=== PATIENT | male | born 1950 | race Caucasian/White ===

== ENCOUNTER → 2018-04-10 | Outpatient (CLI) | payer MEDICARE ==
[2018-04-10 11:36] LABS: ABSOLUTE BASOPHILS # (AUTO) 0.1 10^3/uL (0.0-0.2); ABSOLUTE EOSINOPHILS # (AUTO) 0.3 10^3/uL (0.0-0.6); ABSOLUTE LYMPHOCYTES (AUTO) 1.4 10^3/uL (0.5-4.7); ABSOLUTE MONOCYTES (AUTO) 0.8 10^3/uL (0.1-1.4); ABSOLUTE NEUT (AUTO) 4.1 10^3/uL (1.7-8.2); BASOPHILS % (AUTO) 1.1 % (0-2); EOSINOPHILS % (AUTO) 5.1 % (0-6); HEMATOCRIT 41.8 % (37.9-51.0); HEMOGLOBIN 14.6 g/dL (13.5-17.0); LYMPHOCYTES % (AUTO) 21.6 % (13-45); MEAN CORPUSCULAR HEMOGLOBIN 31.9 pg (27.0-33.4); MEAN CORPUSCULAR HGB CONC 34.8 g/dL (32.0-36.0); MEAN CORPUSCULAR VOLUME 92 fl (80-97); MONOCYTES % (AUTO) 11.5 % (3-13); PLATELET COUNT 161 10^3/uL (150-450); RED BLOOD COUNT 4.56 10^6/uL (4.35-5.55); RED CELL DISTRIBUTION WIDTH 13.3 % (11.5-14.0); SEGMENTED NEUTROPHILS % (AUTO) 60.7 % (42-78); TOTAL CELLS COUNTED % (AUTO) 100 %; WHITE BLOOD COUNT 6.7 10^3/uL (4.0-10.5)
[2018-04-10 11:38] LABS: APPEARANCE,URINE SLIGHTLY-CLOUDY; BILIRUBIN,URINE NEGATIVE (NEGATIVE); GLUCOSE, URINE NEGATIVE (NEGATIVE); KETONES,URINE NEGATIVE (NEGATIVE); LEUKOCYTE ESTERASE,URINE NEGATIVE (NEGATIVE); NITRITE,URINE NEGATIVE (NEGATIVE); PROTEIN,URINE NEGATIVE (NEGATIVE); URINE SPECIFIC GRAVITY 1.026; UROBILINOGEN,URINE NEGATIVE mg/dL (<2.0)
[2018-04-10 11:39] LABS: COLOR,URINE YELLOW
[2018-04-10 11:45] LABS: ANION GAP 14 (5-19); BLOOD UREA NITROGEN 30 mg/dL (7-20); CALCIUM 9.7 mg/dL (8.4-10.2); CARBON DIOXIDE 26 mmol/L (22-30); CHLORIDE 101 mmol/L (98-107); GLUCOSE 99 mg/dL (75-110); POTASSIUM 4.9 mmol/L (3.6-5.0)
--- NOTE | 2018-04-10 12:44 | RADIOLOGY REPORT (SQ) ---
EXAM DESCRIPTION: CHEST PA/LATERAL COMPLETED DATE/TIME: 04/10/2018 10:50 am REASON FOR STUDY: PRE-OP COMPARISON: None. EXAM PARAMETERS: NUMBER OF VIEWS: two views TECHNIQUE: Digital Frontal and Lateral radiographic views of the chest acquired. RADIATION DOSE: NA LIMITATIONS: none FINDINGS: LUNGS AND PLEURA: Mild bronchiectasis in the perihilar regions bilaterally. No focal cons olidation. Chronic elevation right diaphragm. MEDIASTINUM AND HILAR STRUCTURES: No masses or contour abnormalities. HEART AND VASCULAR STRUCTURES: Heart normal size. No evidence for failure. BONES: No acute findings. HARDWARE: None in the chest. OTHER: No other significant finding. IMPRESSION: No acute findings in the chest. TECHNICAL DOCUMENTATION: JOB ID: [id number] [employer]- All Rights Reserved Reading location - IP/workstation name: [email or web address]
== END ==
LOC: OD 10:18
PROVIDERS: ATTEND Orthopaedic Surgery
DX: Z01.810 Encounter for preprocedural cardiovascular examination (principal); Z01.811 Encounter for preprocedural respiratory examination; Z01.812 Encounter for preprocedural laboratory examination; Z01.818 Encounter for other preprocedural examination
CPT/HCPCS: 36415; 71046; 80048; 81001; 85025

== ENCOUNTER 2018-04-28 08:30 | Inpatient (IN) | payer MEDICARE ==
--- NOTE | 2018-04-25 16:11 | Physician Advisory Note ---
Physician Advisor ProgressNote .: Pursuant to the plan for [facility], I have reviewed the medical record for this patient. Physician Advisor Statement: Surgical necessity - VERY NICELY DOCUMENTED IN H&P INCLUDING X-RAY DETAILS. Status: Blue MCR Adv pt. Need to know if there is pre-authorization for Inpt or if determination is needed like typical MCR cases. Will update this note when this info is available. CK
[~2018-04-28 08:30] MED LIST: ACETAMINOPHEN 0 MG/0 ML RTUPB IV ONE; BUPIVACAINE HCL/DEX-WATER/PF 15 MG/2 ML AMPULE ONE; BUPIVACAINE INJ/PF LIPOSOME/PF 266 MG/20 ML SDV IJ PRN; CEFAZOLIN INJ 1 GM VIAL IV PRN; CEFAZOLIN INJ 1 GM VIAL ONE; DEXAMETHASONE SOD PHOSPHATE INJ 4 MG/1 ML VIAL ONE; FENTANYL CITRATE INJ/PF 100 MCG/2 ML AMPUL ONE; IBUPROFEN 800 MG in DEXTROSE 5%-WATER 250 ML IV PRN; IBUPROFEN 800 MG/NS 250 ML IV PRN; LACTATED RINGERS 1000 ML IV PRN; LANSOPRAZOLE 15 MG TAB.RAP.DR ONE; LANSOPRAZOLE 15 MG TAB.RAP.DR PO PRN; LIDOCAINE 0.5% INJ-PF (5 MG/ML) 50 ML SDV SUBCUT PRN; MIDAZOLAM 2 MG/2 ML INJ ONE; ONDANSETRON HCL INJ/PF 4 MG/2 ML SDV ONE; OXYCODONE HCL SR 10 MG TABLET PO ONE; OXYCODONE HCL SR 10 MG TABLET PO PRN; PROPOFOL INJ 200 MG/20 ML VIAL IV ONE; VANCOMYCIN HCL 1,000 MG in DEXTROSE 5%-WATER 250 ML IV PRN
[2018-04-28] MEDS ORDERED: THROMBIN (BOVINE) 5000 UNIT EPITAXIS KIT ONE (08:58)
[2018-04-28] MEDS ORDERED: THROMBIN (BOVINE) TOPICAL 20000 UNIT VIAL ONE (08:58)
[2018-04-28] MEDS ORDERED: BUPIVACAINE INJ/PF LIPOSOME/PF 266 MG/20 ML SDV ONE (08:59)
[2018-05-12] MEDS ORDERED: OXYCODONE HCL SR 10 MG TABLET PO PRN (05:00)
[2018-05-12] MEDS ORDERED: LIDOCAINE 0.5% INJ-PF (5 MG/ML) 50 ML SDV SUBCUT PRN (05:00)
[2018-05-12] MEDS ORDERED: BUPIVACAINE INJ/PF LIPOSOME/PF 266 MG/20 ML SDV IJ PRN (05:00)
[2018-05-12] MEDS ORDERED: IBUPROFEN 800 MG in DEXTROSE 5%-WATER 250 ML IV PRN (05:00)
[2018-05-12] MEDS ORDERED: LACTATED RINGERS 1000 ML IV PRN (05:00)
[2018-05-12] MEDS ORDERED: CEFAZOLIN INJ 1 GM VIAL IV PRN (05:00)
[2018-05-12] MEDS ORDERED: LANSOPRAZOLE 15 MG TAB.RAP.DR PO PRN (05:00)
[2018-05-12] MEDS ORDERED: VANCOMYCIN HCL 1,000 MG in DEXTROSE 5%-WATER 250 ML IV PRN (05:00)
[2018-05-12] MEDS ORDERED: LANSOPRAZOLE 15 MG TAB.RAP.DR ONE (05:29)
[2018-05-12] MEDS ORDERED: CEFAZOLIN INJ 1 GM VIAL ONE (05:30)
[2018-05-12] MEDS ORDERED: OXYCODONE HCL SR 10 MG TABLET PO ONE (05:30)
[2018-05-12] MEDS ORDERED: THROMBIN (BOVINE) TOPICAL 20000 UNIT VIAL ONE (07:01)
[2018-05-12] MEDS ORDERED: BUPIVACAINE INJ/PF LIPOSOME/PF 266 MG/20 ML SDV ONE (07:01)
[2018-05-12] MEDS ORDERED: THROMBIN (BOVINE) 5000 UNIT EPITAXIS KIT ONE (07:01)
[2018-05-12] MEDS ORDERED: FENTANYL CITRATE INJ/PF 100 MCG/2 ML AMPUL ONE ×2 (07:02→07:36)
[2018-05-12] MEDS ORDERED: MIDAZOLAM 2 MG/2 ML INJ ONE ×2 (07:03→07:36)
[2018-05-12] MEDS ORDERED: LIDOCAINE 2% INJ-PF (20 MG/ML) 10 ML AMPUL ONE ×2 (07:04→07:37)
[2018-05-12] MEDS ORDERED: PROPOFOL INJ 200 MG/20 ML VIAL IV ONE ×2 (07:04→07:36)
[2018-05-12] MEDS ORDERED: BUPIVACAINE HCL/DEX-WATER/PF 15 MG/2 ML AMPULE ONE ×2 (07:05→07:38)
[2018-05-12] MEDS ORDERED: TRANEXAMIC ACID INJ/PF 1,000 MG/10 ML SDV IV ONE ×3 (07:21→10:00)
[2018-05-12] MEDS ORDERED: ACETAMINOPHEN 1,000 MG/100 ML RTUPB IV ONE (07:21)
[2018-05-12] MEDS ORDERED: DIPHENHYDRAMINE HCL 50 MG/ML VIAL IV PRN ×2 (08:01→08:33)
[2018-05-12] MEDS ORDERED: PROMETHAZINE HCL INJ 25 MG/1 ML VIAL IV PRN ×2 (08:01)
[2018-05-12] MEDS ORDERED: MEPERIDINE HCL/PF INJ 25 MG/1 ML DISP.SYRIN IV PRN (08:01)
[2018-05-12] MEDS ORDERED: OXYCODONE-ACETAMINOPHEN 5-325 MG TABLET PO PRN ×2 (08:01)
[2018-05-12] MEDS ORDERED: FENTANYL CITRATE INJ/PF 100 MCG/2 ML AMPUL IV PRN ×3 (08:01)
[2018-05-12] MEDS ORDERED: MORPHINE SULFATE 10 MG/ML INJ IM PRN (08:33)
[2018-05-12] MEDS ORDERED: MAG HYDROX/AL HYDROX/SIMETH SUSP 30 ML UDCUP PO PRN (08:33)
[2018-05-12] MEDS ORDERED: ZOLPIDEM TARTRATE 5 MG TABLET PO PRN (08:33)
[2018-05-12] MEDS ORDERED: ONDANSETRON 4 MG TAB.RAPDIS PO PRN (08:33)
[2018-05-12] MEDS ORDERED: RINGERS SOLUTION,LACTATED 1,000 ML IV PRN (08:33)
[2018-05-12] MEDS ORDERED: MORPHINE SULFATE 10 MG/ML INJ IV PRN ×3 (08:33)
[2018-05-12] MEDS ORDERED: ONDANSETRON HCL INJ/PF 4 MG/2 ML SDV IV PRN (08:33)
--- NOTE | 2018-05-12 08:33 | Operative Report ---
Operative Report DATE OF SURGERY: 05/12/18 PREOPERATIVE DIAGNOSIS: Left knee arthritis OPERATION: Left knee arthroplasty SURGEON: AUBREY ALCALA ANESTHESIA: Spinal TISSUE REMOVED OR ALTERED: Bone to pathology ESTIMATED BLOOD LOSS: 100 PROCEDURE: Implants used: Femur: Kimberly triathlon size 5 CR femur Tibia: 4 tibia Tibial liner: 9 mm CS insert Patella: 35 mm oval patella Procedure with the patient supine on the operating table the left the limb is prepped and draped in a sterile fashion. The limb was elevated for exsanguination and the tourniquet inflated to 280 torr. A standard midline median parapatellar approach the knee is taken. Access is gained to the femoral canal through the intercondylar notch. Intramedullary alignment instrumentation used to resect 10 mm of distal femur in 5 of valgus. Sizing guide indicated a size 5 femur. Appropriate cutting jig is then used to fashion anterior posterior and chamfer cuts. A trial reduction femurs performed and this is judged to be adequate. Attention was next turned to the tibia. Using an extra medullary alignment system 9 millimeters was resected off the lateral tibial plateau. This is sized to a size 4 tibia. A trial reduction was now performed with a 5 femur and a for tibia using a 9 millimeters spacer. It is full extension and central patellofemoral tracking. The articular surface the patella was next resected using an oscillating saw. All trial implants were removed. Polymethylmethacrylate is mixed and used to cement the above implants in place. On adequate curing the cement excess cement was removed the tourniquet was deflated hemostasis obtained the wound is then closed in layers using interrupted Vicryl followed by shayna. A sterile compressive dressing was applied and the patient returned to recovery room in satisfactory condition.
--- NOTE | 2018-05-12 09:24 | RADIOLOGY REPORT (SQ) ---
EXAM DESCRIPTION: KNEE LEFT 2 VIEWS COMPLETED DATE/TIME: 05/12/2018 9:16 am REASON FOR STUDY: Post OP -Long Cassette in PACU M17.12 UNILATERAL PRIMARY OSTEOARTHRITIS, LEFT KNE E COMPARISON: None. NUMBER OF VIEWS: Two views TECHNIQUE: Digital radiographic images of the left knee post-procedure. LIMITATIONS: None. FINDINGS: BONES: No worrisome or unexpected findings post-procedure. DEVICE: Left total knee replacement with patellar resurfacing. SOFT TISSUES: No worrisome findings. Expected postoperative soft tissue changes. IMPRESSION: SATISFACTORY POSTOPERATIVE LEFT KNEE. TECHNICAL DOCUMENTATION: JOB ID: [id number] [employer]- All Rights Reserved Reading location - IP/workstation name: [email or web address]
[2018-05-12] MEDS ORDERED: CHOLECALCIFEROL 2000 UNIT PO SCH (10:00)
[2018-05-12] MEDS ORDERED: (PENDING PHARMACY ID) (Lisinopril/Hydrochlorothiazide [Lisinopril-Hctz 20-12.5 Mg Tab] 1 T PO SCH (10:00)
[2018-05-12] MEDS: HYDROCHLOROTHIAZIDE 12.5 MG TABLET PO SCH (11:38)
[2018-05-12] MEDS: BENAZEPRIL HCL 20 MG TABLET PO SCH (11:38)
[2018-05-12] MEDS: OXYCODONE HCL SR 10 MG TABLET PO SCH ×4 (11:39→21:16)
[2018-05-12] MEDS: IBUPROFEN 800 MG in NORMAL SALINE 250 ML IV SCH ×2 (14:52→21:25)
[2018-05-12] MEDS: PREGABALIN 75 MG CAPSULE PO SCH (15:20)
[2018-05-12] MEDS: ATORVASTATIN CALCIUM 10 MG TABLET PO SCH (15:20)
[2018-05-12] MEDS: CYANOCOBALAMIN (VITAMIN B-12) 1,000 MCG TABLET PO SCH (15:20)
[2018-05-12] MEDS: SENNOSIDES/DOCUSATE 8.6-50 MG 1 EACH TABLET PO SCH (15:20)
[2018-05-12] MEDS: BACLOFEN 10 MG TABLET PO SCH (15:21)
[2018-05-12] MEDS: CHOLECALCIFEROL (D3) 1,000 UNIT TABLET PO SCH (15:22)
[2018-05-12] MEDS: PRENATAL VITAMIN W DHA CAPSULE PO SCH (15:37)
[2018-05-12] MEDS ORDERED: VANCOMYCIN HCL 1,000 MG in DEXTROSE 5%-WATER 250 ML IV ONE (20:33)
[2018-05-13] MEDS: ACETAMINOPHEN 325 MG TABLET PO PRN ×2 (00:13→23:09)
[2018-05-13] MEDS: IBUPROFEN 800 MG in NORMAL SALINE 250 ML IV SCH ×3 (05:43→22:24)
[2018-05-13] MEDS: LANSOPRAZOLE 30 MG TAB.RAP.DR PO SCH (05:43)
[2018-05-13 06:22] LABS: HEMATOCRIT 37.7 % (37.9-51.0); MEAN CORPUSCULAR HEMOGLOBIN 31.8 pg (27.0-33.4); MEAN CORPUSCULAR HGB CONC 34.5 g/dL (32.0-36.0); MEAN CORPUSCULAR VOLUME 92 fl (80-97); PLATELET COUNT 145 10^3/uL (150-450); RED BLOOD COUNT 4.09 10^6/uL (4.35-5.55); RED CELL DISTRIBUTION WIDTH 13.3 % (11.5-14.0); WHITE BLOOD COUNT 11.9 10^3/uL (4.0-10.5)
[2018-05-13 06:43] LABS: ANION GAP 9 (5-19); BLOOD UREA NITROGEN 17 mg/dL (7-20); CALCIUM 9.2 mg/dL (8.4-10.2); CARBON DIOXIDE 25 mmol/L (22-30); CHLORIDE 103 mmol/L (98-107); GLUCOSE 138 mg/dL (75-110); POTASSIUM 4.3 mmol/L (3.6-5.0); SODIUM 137.3 mmol/L (137-145)
--- NOTE | 2018-05-13 06:43 | PDOC PROGRESS REPORT ---
Subjective Progress Note for:: 05/13/18 Reason For Visit: M17.12 UNILATERAL PRIMARY OSTEOARTHRITIS, LEFT KNE 68-year-old white male postop day 1 status post left knee arthroplasty. Patient with a temperature max of 38.1 last night and and ambulation of 5 feet yesterday with physical therapy Physical Exam Vital Signs: Temp Pulse Resp BP Pulse Ox 36.9 C 96 16 110/57 L 96 05/13/18 03:36 05/13/18 00:08 05/13/18 00:08 05/13/18 00:08 05/13/18 00:08 Intake & Output 05/11/18 05/12/18 05/13/18 06:59 06:59 06:59 Intake Total 0 4650 Output Total 3675 Balance 0 975 Weight 111.4 kg General appearance: PRESENT: no acute distress, mild distress Head exam: PRESENT: normocephalic Respiratory exam: PRESENT: unlabored Cardiovascular exam: PRESENT: RRR Vascular exam: PRESENT: normal capillary refill GI/Abdominal exam: PRESENT: soft Rectal exam: PRESENT: deferred Extremities exam: PRESENT: other - Left lower extremity dressing clean dry and intact. Distal neurovascular examination is intact. Neurological exam: PRESENT: alert, awake, oriented to person, oriented to place , oriented to time, oriented to situation. ABSENT: motor sensory deficit Psychiatric exam: PRESENT: appropriate affect, normal mood. ABSENT: homicidal ideation, suicidal ideation Skin exam: PRESENT: dry, intact, warm. ABSENT: cyanosis, rash Results Laboratory Results: 05/13/18 06:10 05/12/18 05/13/18 06:01 06:10 WBC 11.9 H RBC 4.09 L Hgb 13.0 L Hct 37.7 L MCV 92 MCH 31.8 MCHC 34.5 RDW 13.3 Plt Count 145 L Potassium 4.2 Impressions: Knee X-Ray 05/12/18 08:35 IMPRESSION: SATISFACTORY POSTOPERATIVE LEFT KNEE. Status: Imported from PACS Assessment & Plan - Diagnosis (1) Status post left knee replacement Is this a current diagnosis for this admission?: Yes Plan: Patient to be mobilized with physical therapy and weightbearing as tolerated basis. This point the patient does not have the functional capacity for consideration of discharge home. We will continue on with physical therapy today and observe for further febrile episodes. Anticipate discharge home tomorrow with home health services and DME. - Time Time Spent with patient: 15-24 minutes Anticipated discharge: Home with Homehealth Within: within 24 hours
[2018-05-13] MEDS: OXYCODONE HCL IR 5 MG TABLET PO PRN ×2 (08:13→23:09)
[2018-05-13] MEDS: OXYCODONE HCL SR 10 MG TABLET PO SCH ×2 (11:08→22:23)
[2018-05-13] MEDS: CYANOCOBALAMIN (VITAMIN B-12) 1,000 MCG TABLET PO SCH (11:09)
[2018-05-13] MEDS: ASPIRIN 81 MG TABLET, ENT COATED PO SCH (11:09)
[2018-05-13] MEDS: SENNOSIDES/DOCUSATE 8.6-50 MG 1 EACH TABLET PO SCH ×3 (11:09→17:34)
[2018-05-13] MEDS: ATORVASTATIN CALCIUM 10 MG TABLET PO SCH (11:09)
[2018-05-13] MEDS: PRENATAL VITAMIN W DHA CAPSULE PO SCH (11:09)
[2018-05-13] MEDS: PREGABALIN 75 MG CAPSULE PO SCH ×3 (11:09→17:35)
[2018-05-13] MEDS: BENAZEPRIL HCL 20 MG TABLET PO SCH (11:11)
[2018-05-13] MEDS: HYDROCHLOROTHIAZIDE 12.5 MG TABLET PO SCH (11:11)
[2018-05-13] MEDS: BACLOFEN 10 MG TABLET PO SCH ×3 (11:11→17:34)
[2018-05-13] MEDS: CHOLECALCIFEROL (D3) 1,000 UNIT TABLET PO SCH (11:13)
[2018-05-14 06:10] LABS: HEMATOCRIT 35.6 % (37.9-51.0); MEAN CORPUSCULAR HEMOGLOBIN 31.8 pg (27.0-33.4); MEAN CORPUSCULAR HGB CONC 33.8 g/dL (32.0-36.0); MEAN CORPUSCULAR VOLUME 94 fl (80-97); PLATELET COUNT 141 10^3/uL (150-450); RED BLOOD COUNT 3.78 10^6/uL (4.35-5.55); RED CELL DISTRIBUTION WIDTH 13.6 % (11.5-14.0); WHITE BLOOD COUNT 14.4 10^3/uL (4.0-10.5)
[2018-05-14] MEDS: IBUPROFEN 800 MG in NORMAL SALINE 250 ML IV SCH (06:24)
[2018-05-14] MEDS: LANSOPRAZOLE 30 MG TAB.RAP.DR PO SCH (06:25)
--- NOTE | 2018-05-14 07:13 | PDOC DISCHARGE SUMMARY ---
General - Admit/Disc Date/PCP Admission Date/Primary Care Provider: 05/12/18 05:38 AISHA THORNTON Discharge Date: 05/14/18 - Discharge Diagnosis (1) Status post left knee replacement Is this a current diagnosis for this admission?: Yes - Additional Information Resuscitation Status: Full Code Home Medications: Acetaminophen with Codeine [Tylenol #3 Tablet] 1 tab PO BID 05/12/18 Atorvastatin Calcium [Lipitor 10 mg Tablet] 10 mg PO QHS 05/12/18 Baclofen [Baclofen 10 mg Tablet] 10 mg PO BID 05/12/18 Cholecalciferol (Vitamin D3) [Vitamin D3] 2,000 unit PO DAILY 05/12/18 Cyanocobalamin (Vitamin B-12) [Vitamin B-12 1000 mcg Tablet] 1,000 mcg PO DAILY 05/12/18 Lisinopril/Hydrochlorothiazide [Lisinopril-Hctz 20-12.5 mg Tab] 1 tab PO DAILY 05/12/18 Piroxicam [Feldene] 20 mg PO DAILY 05/12/18 History of Present Illness History of Present Illness: BRIDGER GUILLORY is a 68 year old male Patient is a 68-year-old white male with progressive bilateral knee pain and functional disability secondary osteoarthritis. Patient is admitted for elective left knee arthroplasty. Hospital Course Hospital Course: Patient is admitted through the operating where he undergoes unconjugated left knee arthroplasty. Is returned to floor in satisfactory condition makes excellent progress with physical therapy and ablating 200 feet. He subsequently for discharge home. Physical Exam Vital Signs: Temp Pulse Resp BP Pulse Ox 36.7 C 87 18 112/57 L 93 05/13/18 23:11 05/13/18 23:11 05/13/18 23:11 05/13/18 23:11 05/13/18 23:11 Intake & Output 05/13/18 05/14/18 05/15/18 06:59 06:59 06:59 Intake Total 4822 1813 Output Total 9875 540 Balance 1147 1273 Weight 111.4 kg 110.2 kg General appearance: PRESENT: no acute distress Head exam: PRESENT: normocephalic Respiratory exam: PRESENT: unlabored Cardiovascular exam: PRESENT: RRR Pulses: PRESENT: +1 pedal pulses bilateral Vascular exam: PRESENT: normal capillary refill GI/Abdominal exam: PRESENT: soft Rectal exam: PRESENT: deferred Extremities exam: PRESENT: other - Left knee compressive dressings removed on postop day 2. The underlying postoperative dressing remains clean dry and intact. There is minimal pedal edema. Distal neurovascular examination is intact. Neurological exam: PRESENT: alert, awake, oriented to person, oriented to place , oriented to time, oriented to situation. ABSENT: motor sensory deficit Psychiatric exam: PRESENT: appropriate affect, normal mood. ABSENT: homicidal ideation, suicidal ideation Skin exam: PRESENT: dry, intact, warm. ABSENT: cyanosis, rash Results Laboratory Results: 05/14/18 04:50 05/13/18 06:10 05/14/18 04:50 WBC 14.4 H RBC 3.78 L Hgb 12.0 L Hct 35.6 L MCV 94 MCH 31.8 MCHC 33.8 RDW 13.6 Plt Count 141 L Impressions: Knee X-Ray 05/12/18 08:35 IMPRESSION: SATISFACTORY POSTOPERATIVE LEFT KNEE. Status: Imported from PACS Qualifiers - * PATIENT BEING DISCHARGED WITH ANY OF THE FOLLOWING DIAGNOSIS: No VTE patient discharged on overlapping Therapy?: Yes Plan Discharge Plan: Patient be discharged home with home health nursing, home health physical therapy, and DME. Follow-up Dr. Kennedy Hernandez [place] for surgery in 2 weeks for staple removal. Time Spent: Less than 30 Minutes
[2018-05-14 08:47] VITALS: BP 103/70
[2018-05-14] MEDS: OXYCODONE HCL IR 5 MG TABLET PO PRN (09:25)
[2018-05-14] MEDS: BACLOFEN 10 MG TABLET PO SCH (09:25)
[2018-05-14] MEDS: ATORVASTATIN CALCIUM 10 MG TABLET PO SCH (09:25)
[2018-05-14] MEDS: SENNOSIDES/DOCUSATE 8.6-50 MG 1 EACH TABLET PO SCH (09:25)
[2018-05-14] MEDS: ASPIRIN 81 MG TABLET, ENT COATED PO SCH (09:25)
[2018-05-14] MEDS: CHOLECALCIFEROL (D3) 1,000 UNIT TABLET PO SCH (09:25)
[2018-05-14] MEDS: CYANOCOBALAMIN (VITAMIN B-12) 1,000 MCG TABLET PO SCH (09:25)
[2018-05-14] MEDS: PRENATAL VITAMIN W DHA CAPSULE PO SCH (09:25)
[2018-05-14] MEDS: BENAZEPRIL HCL 20 MG TABLET PO SCH (09:26)
[2018-05-14] MEDS: PREGABALIN 75 MG CAPSULE PO SCH (09:26)
[2018-05-14] MEDS: HYDROCHLOROTHIAZIDE 12.5 MG TABLET PO SCH (09:26)
== END 2018-05-14 11:00 | disposition home health service (06) | DRG 470 ==
LOC: UNDOADMIN 08:30 → INOR 08:30 → 4S 05-12 10:33
PROVIDERS: ADMIT Orthopaedic Surgery; ATTEND Orthopaedic Surgery
PROC: 0SRD0J9 Replacement of Left Knee Joint with Synthetic Substitute, Cemented, Open Approach (ICD-10-PCS; principal; 2018-05-12 07:30)
DX: M17.12 Unilateral primary osteoarthritis, left knee (principal); I10 Essential (primary) hypertension; E78.00 Pure hypercholesterolemia, unspecified; M19.90 Unspecified osteoarthritis, unspecified site; Z87.891 Personal history of nicotine dependence; Z79.899 Other long term (current) drug therapy
CPT/HCPCS: 01402; 36415; 80048; 84132; 85027; 88305; 88311; 94799; C1713; C1776; C9290; G8978-GP; G8979-GP; G8987-GO; G8988-GO; J0131; J0690; J1100; J1741; J2250; J2405; J2704; J3010; J3370; J3490; J7050; J7060

== ENCOUNTER 2018-06-18 07:05 | Day surgery (SDC) | payer MEDICARE ==
[~2018-06-18 07:05] MED LIST changes: -ACETAMINOPHEN 0 MG/0 ML RTUPB IV ONE; -BUPIVACAINE HCL/DEX-WATER/PF 15 MG/2 ML AMPULE ONE; -BUPIVACAINE INJ/PF LIPOSOME/PF 266 MG/20 ML SDV IJ PRN; +CEFAZOLIN 2 GM/D5W RTU 2 GM/50 ML RTUPB IV PRN; -CEFAZOLIN INJ 1 GM VIAL IV PRN; -CEFAZOLIN INJ 1 GM VIAL ONE; -DEXAMETHASONE SOD PHOSPHATE INJ 4 MG/1 ML VIAL ONE; -FENTANYL CITRATE INJ/PF 100 MCG/2 ML AMPUL ONE; -IBUPROFEN 800 MG in DEXTROSE 5%-WATER 250 ML IV PRN; -IBUPROFEN 800 MG/NS 250 ML IV PRN; -LACTATED RINGERS 1000 ML IV PRN; -LANSOPRAZOLE 15 MG TAB.RAP.DR ONE; -LANSOPRAZOLE 15 MG TAB.RAP.DR PO PRN; -LIDOCAINE 0.5% INJ-PF (5 MG/ML) 50 ML SDV SUBCUT PRN; -MIDAZOLAM 2 MG/2 ML INJ ONE; -ONDANSETRON HCL INJ/PF 4 MG/2 ML SDV ONE; -OXYCODONE HCL SR 10 MG TABLET PO ONE; -OXYCODONE HCL SR 10 MG TABLET PO PRN; -PROPOFOL INJ 200 MG/20 ML VIAL IV ONE; -VANCOMYCIN HCL 1,000 MG in DEXTROSE 5%-WATER 250 ML IV PRN
[2018-06-18] MEDS ORDERED: CEFAZOLIN 2 GM/D5W RTU 2 GM/50 ML RTUPB IV ONE (07:22)
[2018-06-18 08:09] LABS: HEMATOCRIT 38.6 % (37.9-51.0); HEMOGLOBIN 13.3 g/dL (13.5-17.0); MEAN CORPUSCULAR HEMOGLOBIN 31.9 pg (27.0-33.4); MEAN CORPUSCULAR HGB CONC 34.4 g/dL (32.0-36.0); MEAN CORPUSCULAR VOLUME 93 fl (80-97); PLATELET COUNT 147 10^3/uL (150-450); RED BLOOD COUNT 4.17 10^6/uL (4.35-5.55); RED CELL DISTRIBUTION WIDTH 13.9 % (11.5-14.0); WHITE BLOOD COUNT 7.7 10^3/uL (4.0-10.5)
[2018-06-18 08:26] LABS: ANION GAP 12 (5-19); BLOOD UREA NITROGEN 32 mg/dL (7-20); CALCIUM 9.9 mg/dL (8.4-10.2); CARBON DIOXIDE 25 mmol/L (22-30); CHLORIDE 102 mmol/L (98-107); GLUCOSE 114 mg/dL (75-110); POTASSIUM 4.4 mmol/L (3.6-5.0); SODIUM 139.3 mmol/L (137-145)
[2018-06-18] MEDS ORDERED: HYDROMORPHONE HCL INJ/PF 2 MG/ML AMPULE ONE (08:38)
[2018-06-18] MEDS ORDERED: MIDAZOLAM 2 MG/2 ML INJ ONE (08:38)
[2018-06-18] MEDS ORDERED: ONDANSETRON HCL INJ/PF 4 MG/2 ML SDV ONE (08:38)
[2018-06-18] MEDS ORDERED: PROPOFOL INJ 200 MG/20 ML VIAL IV ONE (08:38)
--- NOTE | 2018-06-18 08:57 | Discharge Summary ---
Discharge Summary (SDC) - Discharge Final Diagnosis: Arthrofibrosis following left knee arthroplasty Date of Surgery: 06/18/18 Discharge Date: 06/18/18 Condition: Good Treatment or Instructions: Activity as tolerated Prescriptions: Acetaminophen with Codeine [Tylenol #3 Tablet] 1 tab PO Q6 #60 tablet Referrals: AISHA THORNTON MD [Primary Care Provider] - Discharge Diet: As Tolerated, Regular Respiratory Treatments at Home: Deep Breathing/Coughing Discharge Activity: Activity As Tolerated, No tub bath, Other - Continue physical therapy for aggressive range of motion exercises Home Care Assistance: None Needed Activities Provided by Home Health Agency: Physical Therapy Report the Following to Your Physician Immediately: Shortness of Breath, Fever over 101 Degrees, Drainage-Foul Smelling
--- NOTE | 2018-06-18 08:58 | Operative Report ---
Operative Report DATE OF SURGERY: 06/18/18 PREOPERATIVE DIAGNOSIS: Arthrofibrosis following left knee arthroplasty OPERATION: Closed manipulation left knee SURGEON: AUBREY ALCALA ANESTHESIA: Moderate Sedation ESTIMATED BLOOD LOSS: 0 PROCEDURE: With the patient supine on the operative table under conscious sedation knee range of motion is examined. There is adequate patella mobility. Passive range of motion is approximately 8-80 degrees. The knee is manipulated into complete extension as well this as well as further flexion to 135 degrees. All of the extremes of range of motion as well as the preoperative range of motion are documented by intraoperative photography. The patient's return to the recovery room in satisfactory condition.
[2018-06-18] MEDS: FENTANYL CITRATE INJ/PF 100 MCG/2 ML AMPUL ONE ×2 (09:15→09:20)
[2018-06-18] MEDS ORDERED: ACETAMINOPHEN WITH CODEINE #3 TABLET ONE (10:07)
[2018-06-18 11:21] VITALS: BP 100/72
== END 2018-06-18 11:35 | disposition home or self-care (01) ==
LOC: OROUT 07:05
PROVIDERS: ATTEND Orthopaedic Surgery
DX: M24.662 Ankylosis, left knee (principal); Z96.651 Presence of right artificial knee joint; M19.90 Unspecified osteoarthritis, unspecified site; E78.00 Pure hypercholesterolemia, unspecified; I10 Essential (primary) hypertension; Z79.899 Other long term (current) drug therapy; Z87.891 Personal history of nicotine dependence
CPT/HCPCS: 29999; 36415; 85027; 80048; A9270; J2250; J3010; J1170; J2405; J2704; J0690; 1400

== ENCOUNTER → 2018-07-01 | Outpatient (CLI) | payer MEDICARE ==
[2018-07-01 12:33] LABS: ABSOLUTE BASOPHILS # (AUTO) 0.1 10^3/uL (0.0-0.2); ABSOLUTE EOSINOPHILS # (AUTO) 0.5 10^3/uL (0.0-0.6); ABSOLUTE LYMPHOCYTES (AUTO) 1.3 10^3/uL (0.5-4.7); ABSOLUTE NEUT (AUTO) 4.7 10^3/uL (1.7-8.2); BASOPHILS % (AUTO) 1.4 % (0-2); EOSINOPHILS % (AUTO) 6.1 % (0-6); HEMATOCRIT 38.5 % (37.9-51.0); HEMOGLOBIN 13.2 g/dL (13.5-17.0); MEAN CORPUSCULAR HEMOGLOBIN 31.6 pg (27.0-33.4); MEAN CORPUSCULAR HGB CONC 34.2 g/dL (32.0-36.0); MEAN CORPUSCULAR VOLUME 92 fl (80-97); MONOCYTES % (AUTO) 13.5 % (3-13); PLATELET COUNT 270 10^3/uL (150-450); RED BLOOD COUNT 4.18 10^6/uL (4.35-5.55); TOTAL CELLS COUNTED % (AUTO) 100 %; WHITE BLOOD COUNT 7.6 10^3/uL (4.0-10.5)
--- NOTE | 2018-07-01 12:41 | RADIOLOGY REPORT (SQ) ---
EXAM DESCRIPTION: CHEST PA/LATERAL COMPLETED DATE/TIME: 07/01/2018 12:25 pm REASON FOR STUDY: PRE-OP COMPARISON: CT abdomen pelvis 10/14/2012 Chest films 04/10/2018 EXAM PARAMETERS: NUMBER OF VIEWS: two views TECHNIQUE: Digital Frontal and Lateral radiographic views of the chest acquired. 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 There are increased interstitial markings throughout the right lung, unchanged, likely micro atelecta sis or scarring. No acute infiltrates. No pleural effusion. No pneumothorax. MEDIASTINUM AND HILAR STRUCTURES: No masses or contour abnormalities. HEART AND VASCULAR STRUCTURES: Heart normal size. No evidence for failure. BONES: No acute findings. HARDWARE: None in the chest. OTHER: No other significant finding. IMPRESSION: Chronic elevation right hemidiaphragm with chronic increased interstitial markings in th e right lung No acute findings TECHNICAL DOCUMENTATION: JOB ID: [id number] [employer]- All Rights Reserved Reading location - IP/workstation name: [email or web address]
[2018-07-01 12:58] LABS: ANION GAP 12 (5-19); BLOOD UREA NITROGEN 26 mg/dL (7-20); CALCIUM 10.1 mg/dL (8.4-10.2); CARBON DIOXIDE 28 mmol/L (22-30); CHLORIDE 102 mmol/L (98-107); GLUCOSE 92 mg/dL (75-110); POTASSIUM 5.1 mmol/L (3.6-5.0); SODIUM 142.3 mmol/L (137-145)
[2018-07-01 13:38] LABS: APPEARANCE,URINE SLIGHTLY-CLOUDY; BILIRUBIN,URINE NEGATIVE (NEGATIVE); COLOR,URINE YELLOW; GLUCOSE, URINE NEGATIVE (NEGATIVE); KETONES,URINE NEGATIVE (NEGATIVE); LEUKOCYTE ESTERASE,URINE NEGATIVE (NEGATIVE); NITRITE,URINE NEGATIVE (NEGATIVE); PROTEIN,URINE NEGATIVE (NEGATIVE); URINE SPECIFIC GRAVITY 1.025; UROBILINOGEN,URINE NEGATIVE mg/dL (<2.0)
--- NOTE | 2018-07-02 07:27 | EKG REPORT ---
SEVERITY:- ABNORMAL ECG - SINUS RHYTHM RIGHT BUNDLE BRANCH BLOCK : Confirmed by: Shivam Barrera 02-Jul-2018 07:25:28
== END ==
LOC: OD 11:42
PROVIDERS: ATTEND Orthopaedic Surgery
DX: Z01.818 Encounter for other preprocedural examination (principal)
CPT/HCPCS: 36415; 71046; 80048; 81001; 85025; 93005; 93010

== ENCOUNTER 2018-07-28 05:31 | Inpatient (IN) | payer MEDICARE ==
[~2018-07-28 05:31] MED LIST changes: +BUPIVACAINE INJ/PF LIPOSOME/PF 266 MG/20 ML SDV INJ PRN; -CEFAZOLIN 2 GM/D5W RTU 2 GM/50 ML RTUPB IV PRN; +CEFAZOLIN INJ 1 GM VIAL IV PRN; +IBUPROFEN 800 MG in DEXTROSE 5%-WATER 250 ML IV PRN; +LACTATED RINGERS 1000 ML IV PRN; +LANSOPRAZOLE 15 MG TAB.RAP.DR PO PRN; +LIDOCAINE 0.5% INJ-PF (5 MG/ML) 50 ML SDV SUBCUT PRN; +OXYCODONE HCL SR 10 MG TABLET PO PRN; +VANCOMYCIN HCL 1,000 MG in DEXTROSE 5%-WATER 250 ML IV PRN
[2018-07-28] MEDS ORDERED: LANSOPRAZOLE 15 MG TAB.RAP.DR ONE (05:37)
[2018-07-28] MEDS ORDERED: OXYCODONE HCL SR 10 MG TABLET PO ONE (05:37)
[2018-07-28] MEDS ORDERED: CEFAZOLIN INJ 1 GM VIAL ONE (05:37)
[2018-07-28] MEDS ORDERED: THROMBIN (BOVINE) TOPICAL 20000 UNIT VIAL ONE (06:29)
[2018-07-28] MEDS ORDERED: THROMBIN (BOVINE) 5000 UNIT EPITAXIS KIT ONE (06:29)
[2018-07-28] MEDS ORDERED: BUPIVACAINE HCL 0.25% /EPINEPHRINE INJ/PF 30 ML SDV ONE (06:29)
[2018-07-28] MEDS ORDERED: EPHEDRINE SULFATE INJ 50 MG/1 ML AMPULE ONE (07:11)
[2018-07-28] MEDS ORDERED: ONDANSETRON HCL INJ/PF 4 MG/2 ML SDV ONE (07:11)
[2018-07-28] MEDS ORDERED: FENTANYL CITRATE INJ/PF 100 MCG/2 ML AMPUL ONE (07:11)
[2018-07-28] MEDS ORDERED: MIDAZOLAM 2 MG/2 ML INJ ONE (07:11)
[2018-07-28] MEDS ORDERED: PROPOFOL INJ 200 MG/20 ML VIAL IV ONE (07:12)
[2018-07-28] MEDS ORDERED: TRANEXAMIC ACID INJ/PF 1,000 MG/10 ML SDV IV ONE ×2 (07:12→10:30)
[2018-07-28] MEDS ORDERED: BUPIVACAINE HCL/DEX-WATER/PF 15 MG/2 ML AMPULE ONE (07:13)
[2018-07-28] MEDS ORDERED: PROMETHAZINE HCL INJ 25 MG/1 ML VIAL IV PRN (07:52)
[2018-07-28] MEDS ORDERED: FENTANYL CITRATE INJ/PF 100 MCG/2 ML AMPUL IV PRN ×3 (07:52)
[2018-07-28] MEDS ORDERED: MEPERIDINE HCL/PF INJ 25 MG/1 ML DISP.SYRIN IV PRN (07:52)
[2018-07-28] MEDS ORDERED: DIPHENHYDRAMINE HCL 50 MG/ML VIAL IV PRN ×2 (07:52→08:33)
--- NOTE | 2018-07-28 08:32 | Operative Report ---
Operative Report DATE OF SURGERY: 07/28/18 PREOPERATIVE DIAGNOSIS: Knee arthritis OPERATION: Right knee arthroplasty SURGEON: AUBREY ALCALA ANESTHESIA: Spinal TISSUE REMOVED OR ALTERED: Bone to pathology ESTIMATED BLOOD LOSS: 100 PROCEDURE: Implants used: Femur: Kimberly triathlon size 7 CR femur Tibia: 6 tibia Tibial liner: 9 mm CS insert Patella: 38 mm oval patella Procedure with the patient supine on the operating table the right the limb is prepped and draped in a sterile fashion. The limb was elevated for exsanguination and the tourniquet inflated to 280 torr. A standard midline median parapatellar approach the knee is taken. Access is gained to the femoral canal through the intercondylar notch. Intramedullary alignment instrumentation used to resect 10 mm of distal femur in 5 of valgus. Sizing guide indicated a size 7 femur. Appropriate cutting jig is then used to fashion anterior posterior and chamfer cuts. A trial reduction femurs performed and this is judged to be adequate. Attention was next turned to the tibia. Using an extra medullary alignment system 9 millimeters was resected off the lateral tibial plateau. This is sized to a size 6 tibia. A trial reduction was now performed with a 7 femur and a 6 tibia using a 9 millimeters spacer. It is full extension and central patellofemoral tracking. The articular surface the patella was next resected using an oscillating saw. All trial implants were removed. Polymethylmethacrylate is mixed and used to cement the above implants in place. On adequate curing the cement excess cement was removed the tourniquet was deflated hemostasis obtained the wound is then closed in layers using interrupted Vicryl followed by shayna. A sterile compressive dressing was applied and the patient returned to recovery room in satisfactory condition.
[2018-07-28] MEDS ORDERED: ACETAMINOPHEN 325 MG TABLET PO PRN (08:33)
[2018-07-28] MEDS ORDERED: OXYCODONE HCL IR 5 MG TABLET PO PRN (08:33)
[2018-07-28] MEDS ORDERED: ONDANSETRON 4 MG TAB.RAPDIS PO PRN (08:33)
[2018-07-28] MEDS ORDERED: RINGERS SOLUTION,LACTATED 1,000 ML IV PRN (08:33)
[2018-07-28] MEDS ORDERED: ONDANSETRON HCL INJ/PF 4 MG/2 ML SDV IV PRN (08:33)
[2018-07-28] MEDS ORDERED: MAG HYDROX/AL HYDROX/SIMETH SUSP 30 ML UDCUP PO PRN (08:33)
[2018-07-28] MEDS ORDERED: MORPHINE SULFATE 10 MG/ML INJ IV PRN ×3 (08:33)
--- NOTE | 2018-07-28 09:18 | RADIOLOGY REPORT (SQ) ---
EXAM DESCRIPTION: KNEE RIGHT 2 VIEWS COMPLETED DATE/TIME: 07/28/2018 9:08 am REASON FOR STUDY: Post OP -Long Cassette in PACU M17.11 UNILATERAL PRIMARY OSTEOARTHRITIS, RIGHT KN EE COMPARISON: 05/12/2018 NUMBER OF VIEWS: Two views. TECHNIQUE: AP and lateral radiographic images acquired of the right knee. LIMITATIONS: None. FINDINGS: MINERALIZATION: Normal. BONES: No acute fracture or dislocation. No worrisome bone lesions. JOINT: Expected postoperative findings status post right knee total arthroplasty with postoperative i ntra-articular air and overlying skin shayna. SOFT TISSUES: No soft tissue swelling. No radio-opaque foreign body. OTHER: No other significant finding. IMPRESSION: Expected postoperative findings status post right knee total arthroplasty with postopera tive intra-articular air and overlying skin shayna. No evidence perihardware fracture. TECHNICAL DOCUMENTATION: JOB ID: [id number] [employer]- All Rights Reserved Reading location - IP/workstation name: [email or web address]
[2018-07-28] MEDS ORDERED: (PENDING PHARMACY ID) (Lisinopril/Hydrochlorothiazide [Lisinopril-Hctz 20-12.5 Mg Tab] 1 T PO SCH (10:00)
[2018-07-28] MEDS ORDERED: IBUPROFEN 800 MG in NORMAL SALINE 250 ML IV SCH ×2 (10:00→16:00)
[2018-07-28] MEDS: OXYCODONE HCL SR 10 MG TABLET PO SCH ×2 (11:12→21:59)
[2018-07-28] MEDS: PRENATAL VITAMIN W DHA CAPSULE PO SCH (11:34)
[2018-07-28] MEDS: BACLOFEN 10 MG TABLET PO SCH ×2 (11:34→17:22)
[2018-07-28] MEDS: SENNOSIDES/DOCUSATE 8.6-50 MG 1 EACH TABLET PO SCH ×2 (11:34→17:22)
[2018-07-28] MEDS: PREGABALIN 75 MG CAPSULE PO SCH ×2 (11:34→17:22)
[2018-07-28] MEDS: HYDROCHLOROTHIAZIDE 12.5 MG TABLET PO SCH (11:35)
[2018-07-28] MEDS: LISINOPRIL 10 MG TABLET PO SCH (11:36)
[2018-07-28] MEDS: MORPHINE SULFATE 10 MG/ML INJ IV PRN ×2 (13:51→15:43)
[2018-07-28] MEDS: IBUPROFEN 800 MG in NORMAL SALINE 250 ML IV SCH (15:59)
[2018-07-28] MEDS ORDERED: VANCOMYCIN HCL 1,000 MG in DEXTROSE 5%-WATER 250 ML IV ONE (20:33)
[2018-07-28] MEDS ORDERED: ZOLPIDEM TARTRATE 5 MG TABLET PO PRN (22:00)
[2018-07-28] MEDS: ATORVASTATIN CALCIUM 10 MG TABLET PO SCH (22:00)
[2018-07-29] MEDS: IBUPROFEN 800 MG in NORMAL SALINE 250 ML IV SCH ×3 (00:41→17:24)
[2018-07-29] MEDS: MORPHINE SULFATE 10 MG/ML INJ IV PRN (02:42)
[2018-07-29] MEDS: LANSOPRAZOLE 30 MG TAB.RAP.DR PO SCH (05:42)
[2018-07-29 06:54] LABS: HEMATOCRIT 35.2 % (37.9-51.0); HEMOGLOBIN 11.9 g/dL (13.5-17.0); MEAN CORPUSCULAR HEMOGLOBIN 30.8 pg (27.0-33.4); MEAN CORPUSCULAR HGB CONC 33.8 g/dL (32.0-36.0); MEAN CORPUSCULAR VOLUME 91 fl (80-97); PLATELET COUNT 156 10^3/uL (150-450); RED BLOOD COUNT 3.86 10^6/uL (4.35-5.55); RED CELL DISTRIBUTION WIDTH 14.4 % (11.5-14.0); WHITE BLOOD COUNT 12.7 10^3/uL (4.0-10.5)
--- NOTE | 2018-07-29 07:05 | PDOC PROGRESS REPORT ---
Subjective Progress Note for:: 07/29/18 Reason For Visit: M17.11 UNILATERAL PRIMARY OSTEOARTHRITIS, RIGHT KN 68-year-old white male postop day 1 status post right knee arthroplasty. Patient ambulated 100 feet with physical therapy yesterday. Is complaining of pain today although appears relatively sedated by my estimation. Physical Exam Vital Signs: Temp Pulse Resp BP Pulse Ox 36.9 C 91 16 134/64 H 98 07/29/18 00:01 07/29/18 00:01 07/29/18 00:01 07/29/18 00:01 07/29/18 00:01 Intake & Output 07/28/18 07/29/18 07/30/18 06:59 06:59 06:59 Intake Total 0 5550 Output Total 3150 Balance 0 2400 Weight 103.2 kg Physical Exam: Middle-aged white male somewhat difficult to hold a conversation with him that he tends to drift his attention. General appearance: PRESENT: no acute distress, mild distress Head exam: PRESENT: normocephalic Respiratory exam: PRESENT: unlabored Cardiovascular exam: PRESENT: RRR Pulses: PRESENT: +1 pedal pulses bilateral Vascular exam: PRESENT: normal capillary refill GI/Abdominal exam: PRESENT: soft Rectal exam: PRESENT: deferred Extremities exam: PRESENT: other - Right lower extremity dressing clean dry and intact. Distal neurovascular examination is intact. Neurological exam: PRESENT: alert, awake, oriented to person, oriented to place , oriented to time, oriented to situation. ABSENT: motor sensory deficit Psychiatric exam: PRESENT: appropriate affect, normal mood. ABSENT: homicidal ideation, suicidal ideation Skin exam: PRESENT: dry, intact, warm. ABSENT: cyanosis, rash Results Laboratory Results: 07/29/18 05:28 07/29/18 05:28 WBC 12.7 H RBC 3.86 L Hgb 11.9 L Hct 35.2 L MCV 91 MCH 30.8 MCHC 33.8 RDW 14.4 H Plt Count 156 Impressions: Knee X-Ray 07/28/18 08:35 IMPRESSION: Expected postoperative findings status post right knee total arthroplasty with postoperative intra-articular air and overlying skin shayna. No evidence perihardware fracture. Status: Imported from PACS Assessment & Plan - Diagnosis (1) Arthritis of right knee Is this a current diagnosis for this admission?: Yes Plan: Pain medication is adjusted. Patient will continue with physical therapy. Anticipate discharge home tomorrow with home health services. - Time Time Spent with patient: 15-24 minutes Anticipated discharge: Home with Homehealth Within: within 24 hours
[2018-07-29 07:16] LABS: ANION GAP 13 (5-19); BLOOD UREA NITROGEN 15 mg/dL (7-20); CALCIUM 9.5 mg/dL (8.4-10.2); CARBON DIOXIDE 24 mmol/L (22-30); CHLORIDE 100 mmol/L (98-107); GLUCOSE 147 mg/dL (75-110); POTASSIUM 4.5 mmol/L (3.6-5.0); SODIUM 136.5 mmol/L (137-145)
[2018-07-29] MEDS: OXYCODONE HCL IR 5 MG TABLET PO PRN ×3 (07:47→17:23)
[2018-07-29] MEDS ORDERED: OXYCODONE HCL SR 10 MG TABLET PO SCH (10:00)
[2018-07-29] MEDS: SENNOSIDES/DOCUSATE 8.6-50 MG 1 EACH TABLET PO SCH ×2 (10:19→17:23)
[2018-07-29] MEDS: PREGABALIN 75 MG CAPSULE PO SCH ×2 (10:19→17:23)
[2018-07-29] MEDS: PRENATAL VITAMIN W DHA CAPSULE PO SCH (10:19)
[2018-07-29] MEDS: LISINOPRIL 10 MG TABLET PO SCH (10:19)
[2018-07-29] MEDS: BACLOFEN 10 MG TABLET PO SCH ×2 (10:20→17:24)
[2018-07-29] MEDS: HYDROCHLOROTHIAZIDE 12.5 MG TABLET PO SCH (10:20)
[2018-07-29] MEDS: ASPIRIN 81 MG TABLET, ENT COATED PO SCH (10:20)
[2018-07-29] MEDS: OXYCODONE HCL SR 10 MG TABLET PO SCH ×2 (10:21→21:27)
[2018-07-29] MEDS: ATORVASTATIN CALCIUM 10 MG TABLET PO SCH (21:27)
[2018-07-30] MEDS: IBUPROFEN 800 MG in NORMAL SALINE 250 ML IV SCH (00:50)
[2018-07-30 05:02] LABS: HEMATOCRIT 31.3 % (37.9-51.0); HEMOGLOBIN 10.7 g/dL (13.5-17.0); MEAN CORPUSCULAR HEMOGLOBIN 31.5 pg (27.0-33.4); MEAN CORPUSCULAR HGB CONC 34.2 g/dL (32.0-36.0); MEAN CORPUSCULAR VOLUME 92 fl (80-97); PLATELET COUNT 148 10^3/uL (150-450); RED BLOOD COUNT 3.39 10^6/uL (4.35-5.55); RED CELL DISTRIBUTION WIDTH 14.1 % (11.5-14.0); WHITE BLOOD COUNT 16.2 10^3/uL (4.0-10.5)
[2018-07-30] MEDS: LANSOPRAZOLE 30 MG TAB.RAP.DR PO SCH (05:26)
--- NOTE | 2018-07-30 07:19 | PDOC DISCHARGE SUMMARY ---
General - Admit/Disc Date/PCP Admission Date/Primary Care Provider: 07/28/18 05:31 AISHA THORNTON Discharge Date: 07/30/18 - Discharge Diagnosis (1) Arthritis of right knee Is this a current diagnosis for this admission?: Yes - Additional Information Resuscitation Status: Full Code Home Medications: Acetaminophen with Codeine [Tylenol #3 Tablet] 1 tab PO Q6HP PRN 07/28/18 Atorvastatin Calcium [Lipitor 10 mg Tablet] 10 mg PO QHS 07/28/18 Baclofen [Baclofen 10 mg Tablet] 10 mg PO BID 07/28/18 Cholecalciferol (Vitamin D3) [Vitamin D3 2000 unit Tablet] 2,000 unit PO DAILY 07/28/18 Cyanocobalamin (Vitamin B-12) [Vitamin B-12 1000 mcg Tablet] 1,000 mcg PO DAILY 07/28/18 Lisinopril/Hydrochlorothiazide [Zestoretic 20-12.5 mg Tablet] 1 tab PO DAILY 06/05 Piroxicam [Feldene] 20 mg PO DAILY 07/28/18 History of Present Illness History of Present Illness: BRIDGER GUILLORY is a 68 year old male The patient is a 68-year-old white male with progressive right knee pain and functional disability second osteoarthritis. Patient is admitted for elective right knee arthroplasty. Hospital Course Hospital Course: Patient is admitted through the operating where he undergoes unconjugated right knee arthroplasty. Is returned to floor in satisfactory condition. He seen by physical therapy and begins weightbearing as tolerated toward program. Dressing is clean dry and intact. Distal neurovascular examination is intact. Physical Exam Vital Signs: Temp Pulse Resp BP Pulse Ox 36.9 C 95 17 127/72 H 96 07/29/18 23:54 07/29/18 23:54 07/29/18 23:54 07/29/18 23:54 07/29/18 23:54 Intake & Output 07/29/18 07/30/18 07/31/18 06:59 06:59 06:59 Intake Total 7500 1827 Output Total 3150 945 Balance 2400 882 Weight 103.2 kg 103.5 kg General appearance: PRESENT: no acute distress Head exam: PRESENT: normocephalic Respiratory exam: PRESENT: unlabored Cardiovascular exam: PRESENT: RRR Pulses: PRESENT: +1 pedal pulses bilateral Vascular exam: PRESENT: normal capillary refill GI/Abdominal exam: PRESENT: soft Rectal exam: PRESENT: deferred Extremities exam: PRESENT: other - Right knee compressive dressing removed on postop day 2. Underlying op site is clean dry and intact. Distal neurovascular examination is intact. Neurological exam: PRESENT: alert, awake, oriented to person, oriented to place , oriented to time, oriented to situation. ABSENT: motor sensory deficit Psychiatric exam: PRESENT: appropriate affect, normal mood. ABSENT: homicidal ideation, suicidal ideation Skin exam: PRESENT: dry, intact, warm. ABSENT: cyanosis, rash Results Laboratory Results: 07/30/18 04:40 07/29/18 05:28 07/29/18 07/30/18 05:28 04:40 WBC 16.2 H RBC 3.39 L Hgb 10.7 L Hct 31.3 L MCV 92 MCH 31.5 MCHC 34.2 RDW 14.1 H Plt Count 148 L Sodium 136.5 L Potassium 4.5 Chloride 100 Carbon Dioxide 24 Anion Gap 13 BUN 15 Creatinine 0.69 Est GFR ( Amer) > 60 Est GFR (Non-Af Amer) > 60 Glucose 147 H Calcium 9.5 Impressions: Knee X-Ray 07/28/18 08:35 IMPRESSION: Expected postoperative findings status post right knee total arthroplasty with postoperative intra-articular air and overlying skin shayna. No evidence perihardware fracture. Status: Imported from PACS Qualifiers - * PATIENT BEING DISCHARGED WITH ANY OF THE FOLLOWING DIAGNOSIS: No VTE patient discharged on overlapping Therapy?: Yes Plan Discharge Plan: Patient be discharged home with home health [facility] versus and DME. Follow -up with Dr. Kennedy Hernandez [place] for surgery in 2 weeks for staple removal Time Spent: Less than 30 Minutes
[2018-07-30] MEDS: LISINOPRIL 10 MG TABLET PO SCH (09:35)
[2018-07-30] MEDS: PREGABALIN 75 MG CAPSULE PO SCH (09:35)
[2018-07-30] MEDS: HYDROCHLOROTHIAZIDE 12.5 MG TABLET PO SCH (09:37)
[2018-07-30] MEDS: SENNOSIDES/DOCUSATE 8.6-50 MG 1 EACH TABLET PO SCH (09:37)
[2018-07-30] MEDS: ASPIRIN 81 MG TABLET, ENT COATED PO SCH (09:37)
[2018-07-30] MEDS: PRENATAL VITAMIN W DHA CAPSULE PO SCH (09:37)
[2018-07-30] MEDS: BACLOFEN 10 MG TABLET PO SCH (09:39)
[2018-07-30] MEDS: OXYCODONE HCL IR 5 MG TABLET PO PRN (11:17)
[2018-07-30 15:44] VITALS: BP 137/82
== END 2018-07-30 18:24 | disposition home health service (06) | DRG 470 ==
LOC: INOR 05:31 → 4S 10:16
PROVIDERS: ADMIT Orthopaedic Surgery; ATTEND Orthopaedic Surgery
PROC: 0SRC0J9 Replacement of Right Knee Joint with Synthetic Substitute, Cemented, Open Approach (ICD-10-PCS; principal; 2018-07-28 07:30)
PROC: 3E0234Z Introduction of Serum, Toxoid and Vaccine into Muscle, Percutaneous Approach (ICD-10-PCS; 2018-07-30)
DX: M17.11 Unilateral primary osteoarthritis, right knee (principal); T84.82XA Fibrosis due to internal orthopedic prosthetic devices, implants and grafts, initial encounter; Z96.652 Presence of left artificial knee joint; E78.00 Pure hypercholesterolemia, unspecified; I10 Essential (primary) hypertension; Z23 Encounter for immunization
CPT/HCPCS: 01402; 36415; 80048; 84132; 85027; 88304; 88311; 90471; 90686; 94799; C1713; C1776; G0008; G8978-GP; G8979-GP; G8987-GO; G8988-GO; J0690; J1741; J2250; J2270; J2405; J2704; J3010; J3370; J3490; J7050; J7060

== ENCOUNTER 2018-08-03 13:09 | Emergency (ER) | payer MEDICARE ==
--- NOTE | 2018-08-03 13:58 | ER Document Report ---
ED Medical Screen (RME) - General Chief Complaint: Skin Problem Stated Complaint: OPEN SORES ON LEGS, DRAINAGE Time Seen by Provider: 08/03/18 13:52 Mode of Arrival: Wheelchair Information source: Patient, Relative, [facility] Records Notes: 68-year-old male with hypertension, diabetes presents with concern for purulent drainage from the surgical site of his right knee. Patient recently underwent total knee replacement with Dr. Alcala and was discharged on July 30, 2018. reports purulent drainage with bandage changes. Patient denies associated fever, nausea, vomiting. I have greeted and performed a rapid initial assessment of this patient. A comprehensive ED assessment and evaluation of the patient, analysis of test results and completion of medical decision making process we will be contacted by additional ED providers. PHYSICAL EXAMINATION: Vital signs reviewed-afebrile, tachycardic GENERAL: Well-appearing, well-nourished and in no acute distress. LUNGS: No respiratory distress Musculoskeletal: Dressing in place over right knee. NEUROLOGICAL: Normal speech, PSYCH: Normal mood, normal affect. SKIN: Left knee surgical scar clean dry intact. Right knee with bandage in place no obvious erythema of the skin. TRAVEL OUTSIDE OF THE [place] IN LAST 30 DAYS: No - HPI Onset: Last week Onset/Duration: Gradual, Persistent Quality of pain: Achy Associated Symptoms: denies: Chills, Fever, Nausea Exacerbated by: Movement Relieved by: Denies Similar symptoms previously: No Recently seen / treated by doctor: Yes - Related Data Smoking: Non-smoker Frequency of alcohol use: None Drug Abuse: None Allergies/Adverse Reactions: No Known Allergies Allergy (Verified 07/14/18 11:20) Past Medical History - Past Medical History Cardiac Medical History: Reports: Hx Hypercholesterolemia, Hx Hypertension Denies: Hx Atrial Fibrillation, Hx Congestive Heart Failure, Hx Coronary Artery Disease, Hx Heart Attack, Hx Peripheral Vascular Disease, Hx Pulmonary Embolism, Hx Heart Murmur Pulmonary Medical History: Reports: Hx Bronchitis - FEW YEARS AGO 2012 Denies: Hx Asthma, Hx COPD, Hx Pneumonia, Hx Respiratory Failure, Hx Sleep Apnea, Hx Tuberculosis Neurological Medical History: Denies: Hx Cerebrovascular Accident, Hx Seizures Endocrine Medical History: Reports: Hx Diabetes Mellitus Type 2 - edge of being diabetic. Denies: Hx Hyperthyroidism, Hx Hypothyroidism Renal/ Medical History: Reports: Hx Benign Prostatic Hyperplasia, Hx Kidney Stones. Denies: Hx End Stage Renal Disease, Hx Peritoneal Dialysis Malignancy Medical History: Denies Hx Lung Cancer GI Medical History: Reports: Hx Gastroesophageal Reflux Disease. Denies: Hx Crohn's Disease, Hx Hiatal Hernia, Hx Irritable Bowel, Hx Liver Failure, Hx Pancreatitis, Hx Ulcer Musculoskeltal Medical History: Reports Hx Arthritis - OA, Denies Hx Fibromyalgia, Denies Hx Muscular Dystrophy Psychiatric Medical History: Denies: Hx Bipolar Disorder, Hx Depression, Hx Post Traumatic Stress Disorder Traumatic Medical History: Reports: Hx Fractures - right hand Past Surgical History: Denies: Hx Appendectomy, Hx Bowel Surgery, Hx Cholecystectomy, Hx Colostomy, Hx Coronary Artery Bypass Graft, Hx Gastric Bypass Surgery, Hx Herniorrhaphy, Hx Pacemaker, Hx Tonsillectomy - Immunizations Immunizations up to date: Yes Hx Diphtheria, Pertussis, Tetanus Vaccination: Yes History of Influenza Vaccine for 05/2017 - 10/2017 Season: Yes Influenza Administration Date for 05/2017 - 10/2017 Season: 05/19/17 Physical Exam - Vital signs Vitals: Temp Pulse Resp BP Pulse Ox 97.7 F 104 H 16 121/74 95 08/03/18 13:31 08/03/18 13:31 08/03/18 13:31 08/03/18 13:31 08/03/18 13:31 Course - Vital Signs Vital signs: Temp Pulse Resp BP Pulse Ox 97.7 F 104 H 16 121/74 95 08/03/18 13:31 08/03/18 13:31 08/03/18 13:31 08/03/18 13:31 08/03/18 13:31 Doctor's Discharge - Discharge Referrals: AUBREY ALCALA MD [Primary Care Provider] - Follow up as needed
[2018-08-03 14:51] LABS: ABSOLUTE BASOPHILS # (AUTO) 0.1 10^3/uL (0.0-0.2); ABSOLUTE EOSINOPHILS # (AUTO) 0.6 10^3/uL (0.0-0.6); ABSOLUTE LYMPHOCYTES (AUTO) 1.3 10^3/uL (0.5-4.7); ABSOLUTE MONOCYTES (AUTO) 1.7 10^3/uL (0.1-1.4); ABSOLUTE NEUT (AUTO) 10.2 10^3/uL (1.7-8.2); BASOPHILS % (AUTO) 0.8 % (0-2); EOSINOPHILS % (AUTO) 4.1 % (0-6); HEMATOCRIT 33.7 % (37.9-51.0); HEMOGLOBIN 11.5 g/dL (13.5-17.0); LYMPHOCYTES % (AUTO) 9.1 % (13-45); MEAN CORPUSCULAR HEMOGLOBIN 30.7 pg (27.0-33.4); MEAN CORPUSCULAR HGB CONC 34.2 g/dL (32.0-36.0); MEAN CORPUSCULAR VOLUME 90 fl (80-97); MONOCYTES % (AUTO) 12.6 % (3-13); PLATELET COUNT 328 10^3/uL (150-450); RED BLOOD COUNT 3.76 10^6/uL (4.35-5.55); RED CELL DISTRIBUTION WIDTH 14.2 % (11.5-14.0); SEGMENTED NEUTROPHILS % (AUTO) 73.4 % (42-78); TOTAL CELLS COUNTED % (AUTO) 100 %; WHITE BLOOD COUNT 13.9 10^3/uL (4.0-10.5)
[2018-08-03 15:02] LABS: ANION GAP 10 (5-19); BLOOD UREA NITROGEN 28 mg/dL (7-20); CALCIUM 9.7 mg/dL (8.4-10.2); CARBON DIOXIDE 26 mmol/L (22-30); CHLORIDE 102 mmol/L (98-107); GLUCOSE 167 mg/dL (75-110); POTASSIUM 4.7 mmol/L (3.6-5.0); SODIUM 137.6 mmol/L (137-145)
[2018-08-03] MEDS ORDERED: MORPHINE SULFATE 10 MG/ML INJ IV ONE (15:03)
[2018-08-03] MEDS ORDERED: ONDANSETRON HCL INJ/PF 4 MG/2 ML SDV IV ONE (15:03)
--- NOTE | 2018-08-03 15:14 | RADIOLOGY REPORT (SQ) ---
EXAM DESCRIPTION: KNEE RIGHT 4 VIEWS COMPLETED DATE/TIME: 08/03/2018 2:55 pm REASON FOR STUDY: Purulent drainage from surgical wound COMPARISON: Right knee x-ray 07/28/2018. NUMBER OF VIEWS: Four views. TECHNIQUE: AP, lateral, and both oblique radiographic images acquired of the right knee. LIMITATIONS: None. FINDINGS: MINERALIZATION: Normal. BONES: The patient is status post total right knee arthroplasty with patellar resurfacing. No acute fracture or dislocation. No worrisome bone lesions. JOINT: Small effusion. SOFT TISSUES: Interval development of diffuse soft tissue swelling. Skin shayna are seen at the ant erior aspect of the knee. IMPRESSION: Status post total right knee arthroplasty with no radiographic evidence of acute fractur e. Interval development of diffuse soft tissue swelling. Small joint effusion. TECHNICAL DOCUMENTATION: JOB ID: [id number] [employer]- All Rights Reserved Reading location - IP/workstation name: [email or web address]
--- NOTE | 2018-08-03 16:51 | ER Document Report ---
ED General - General Chief Complaint: Skin Problem Stated Complaint: OPEN SORES ON LEGS, DRAINAGE Time Seen by Provider: 08/03/18 13:52 Mode of Arrival: Wheelchair Information source: Patient, Relative Notes: This is a 68-year-old man with hypertension, peripheral vascular disease, status post total knee replacement last Saturday (6 days ago). Patient is brought into the emergency room because of concerns of green discharge from the wound. Patient's states that they were 2 areas on the lateral aspect of the knee joint outside of where the wound dressing is that had blisters and then had some drainage. They deny fever. They deny any increased pain. TRAVEL OUTSIDE OF THE [place] IN LAST 30 DAYS: No - HPI Onset: Just prior to arrival Onset/Duration: Gradual Quality of pain: Other - Patient has had pain with range of motion after surgery that is expected. He has not had any increased pain over the last few days. Severity: Moderate Pain Level: 2 Associated symptoms: Chest pain, Fever, Shortness of breath Exacerbated by: Movement Relieved by: Denies Similar symptoms previously: Yes Recently seen / treated by doctor: Yes - Related Data Allergies/Adverse Reactions: No Known Allergies Allergy (Verified 07/14/18 11:20) Past Medical History - General Information source: Patient, Relative, [facility] Records - Social History Smoking Status: Never Smoker Cigarette use (# per day): No Chew tobacco use (# tins/day): No Frequency of alcohol use: None Drug Abuse: None Lives with: Spouse/Significant other Family History: None Patient has suicidal ideation: No Patient has homicidal ideation: No - Past Medical History Cardiac Medical History: Reports: Hx Hypercholesterolemia, Hx Hypertension Denies: Hx Atrial Fibrillation, Hx Congestive Heart Failure, Hx Coronary Artery Disease, Hx Heart Attack, Hx Peripheral Vascular Disease, Hx Pulmonary Embolism, Hx Heart Murmur Pulmonary Medical History: Reports: Hx Bronchitis - FEW YEARS AGO 2012 Denies: Hx Asthma, Hx COPD, Hx Pneumonia, Hx Respiratory Failure, Hx Sleep Apnea, Hx Tuberculosis Neurological Medical History: Denies: Hx Cerebrovascular Accident, Hx Seizures Endocrine Medical History: Reports: Hx Diabetes Mellitus Type 2 - edge of being diabetic. Denies: Hx Hyperthyroidism, Hx Hypothyroidism Renal/ Medical History: Reports: Hx Benign Prostatic Hyperplasia, Hx Kidney Stones. Denies: Hx End Stage Renal Disease, Hx Peritoneal Dialysis Malignancy Medical History: Denies Hx Lung Cancer GI Medical History: Reports: Hx Gastroesophageal Reflux Disease. Denies: Hx Crohn's Disease, Hx Hiatal Hernia, Hx Irritable Bowel, Hx Liver Failure, Hx Pancreatitis, Hx Ulcer Musculoskeletal Medical History: Reports Hx Arthritis - OA, Denies Hx Fibromyalgia, Denies Hx Muscular Dystrophy Psychiatric Medical History: Denies: Hx Bipolar Disorder, Hx Depression, Hx Post Traumatic Stress Disorder Traumatic Medical History: Reports: Hx Fractures - right hand Past Surgical History: Denies: Hx Appendectomy, Hx Bowel Surgery, Hx Cholecystectomy, Hx Colostomy, Hx Coronary Artery Bypass Graft, Hx Gastric Bypass Surgery, Hx Herniorrhaphy, Hx Pacemaker, Hx Tonsillectomy - Immunizations Immunizations up to date: Yes Hx Diphtheria, Pertussis, Tetanus Vaccination: Yes Hx Pneumococcal Vaccination: 05/19/17 Review of Systems - Review of Systems Constitutional: denies: Chills, Fever EENT: No symptoms reported Cardiovascular: No symptoms reported Respiratory: No symptoms reported Gastrointestinal: No symptoms reported Genitourinary: No symptoms reported Male Genitourinary: No symptoms reported Musculoskeletal: See HPI Skin: See HPI Hematologic/Lymphatic: No symptoms reported Neurological/Psychological: No symptoms reported Physical Exam - Vital signs Vitals: Temp Pulse Resp BP Pulse Ox 97.7 F 104 H 16 121/74 95 08/03/18 13:31 08/03/18 13:31 08/03/18 13:31 08/03/18 13:31 08/03/18 13:31 Notes: Physical exam: GENERAL: Patient is alert and oriented x3, no acute distress HEAD: Atraumatic, normocephalic. EYES: Pupils equal round and reactive to light, extraocular movements intact, sclera anicteric, conjunctiva are normal. ENT: Moist mucous membranes. NECK: Normal range of motion, supple without obvious mass LUNGS: Breath sounds clear to auscultation bilaterally and equal. No wheezes rales or rhonchi. HEART: Regular rate and rhythm without murmurs, rubs or gallops. ABDOMEN: Soft, normoactive bowel sounds. No tenderness to palpation. No guarding, no rebound. No masses appreciated. EXTREMITIES: Left lower extremity: Old scar from total knee replacement. Normal range of motion, no pitting or edema. There is Refill. Right lower extremity: Patient still has dressings on from the surgery. There is swelling to the lower extremity that is expected after the knee replacement. Distal cap refill is good. There are 2 small areas of abrasions on the right lateral knee outside the dressings which is where the patient's said was draining. There is no drainage now and it looks very superficial and noninfected. There is one area of erythema on the medial side of the knee outside the dressings that looks more like abrasion and does not appear infected at this time. NEUROLOGICAL: Cranial nerves II through XII grossly intact. Normal speech, moving all extremities. PSYCH: Normal mood, normal affect. SKIN: As mentioned above Course - Re-evaluation Re-evalutation: 08/03/18 19:28 Operative dressings were removed. The wound site was inspected: Its dry and intact. There is no pus drainage expressible. There is mild erythema around the edges of the wound (which would be expected). There is no increased warmth or obvious infection. The wound site was cleaned with ChloraPrep and allowed to dry. The wound was redressed with Xeroform followed by an operative dressing. Discussed case with Dr. Alcala (clinical case as well as labs) who knows patient well. We will follow-up with patient on Saturday. - Vital Signs Vital signs: Temp Pulse Resp BP Pulse Ox 97.8 F 85 18 113/66 95 08/03/18 16:56 08/03/18 16:56 08/03/18 16:56 08/03/18 16:56 08/03/18 16:56 - Laboratory Result Diagrams: 08/03/18 14:30 08/03/18 14:30 Laboratory results interpreted by me: 08/03/18 08/03/18 14:30 14:30 WBC 13.9 H RBC 3.76 L Hgb 11.5 L Hct 33.7 L RDW 14.2 H Lymphocytes % 9.1 L Absolute Neutrophils 10.2 H Absolute Monocytes 1.7 H BUN 28 H Glucose 167 H - Diagnostic Test Radiology reviewed: Image reviewed, Reports reviewed - No acute injury Discharge - Discharge Clinical Impression: Wound check, Dressing change Condition: Stable Disposition: HOME, SELF-CARE Additional Instructions: As we discussed, I did discuss the wound with Dr. Alcala as well as the lab results. The surgical wound itself was without any pus drainage. The dressings were changed He does want to see you in the office on Saturday. In the meantime, you can put some bacitracin on the external areas that had previously shown blistered. If you develop any fever (temperature greater than 100.5), pain, worsening redness, worsening swelling: Return to the ER at once. Prescriptions: Bacitracin Zinc [Bacitracin Oint 15 gm] 1 applic TP DAILY #1 tube Referrals: AUBREY ALCALA MD [Primary Care Provider] - 08/05/18
[2018-08-03 16:59] VITALS: BP 113/66
== END 2018-08-03 17:07 | disposition home or self-care (01) ==
LOC: ER 13:09
DX: Z48.01 Encounter for change or removal of surgical wound dressing (principal); Z98.890 Other specified postprocedural states; Z96.651 Presence of right artificial knee joint
CPT/HCPCS: 99284; 96374; 96375; 36415; 87040; 85025; 80048; 73564; J2270; J2405

== ENCOUNTER 2019-03-22 18:42 | Emergency (ER) | payer MEDICARE ==
[2019-03-22] MEDS ORDERED: ASPIRIN 81 MG TABLET, CHEWABLE PO ONE (19:08)
[2019-03-22] MEDS ORDERED: ALBUTEROL SULFATE 0.083% NEB 2.5 MG/3 ML AMPUL NEB ONE (19:10)
--- NOTE | 2019-03-22 19:14 | ER Document Report ---
ED Medical Screen (RME) - General Chief Complaint: Chest Pain Stated Complaint: CHEST PAIN Time Seen by Provider: 03/22/19 18:52 Primary Care Provider: AUBREY ALCALA MD [Primary Care Provider] - Follow up as needed Notes: Patient is a 69-year-old male with a past medical history of arthritis who presents to the emergency department with chest pain. His symptoms started at 1600 today. He states that it hurts for him to take a deep breath in. His pain is in his bilateral chest. Patient states that he did some yard work yesterday and felt like he may have overdone it. Patient has arthritis and he takes Tylenol with codeine and ibuprofen for his arthritis. He also takes some vitamins. Denies any other past medical history. Exam: Inspiratory and expiratory wheezes and right upper lobe. I have greeted and performed a rapid initial assessment of this patient. A comprehensive ED assessment and evaluation of the patient, analysis of test results and completion of medical decision making process will be conducted by an additional ED providers. TRAVEL OUTSIDE OF THE [place] IN LAST 30 DAYS: No - Related Data Allergies/Adverse Reactions: No Known Allergies Allergy (Verified 03/22/19 18:42) Past Medical History - Past Medical History Cardiac Medical History: Reports: Hx Hypercholesterolemia, Hx Hypertension Denies: Hx Atrial Fibrillation, Hx Congestive Heart Failure, Hx Coronary Artery Disease, Hx Heart Attack, Hx Peripheral Vascular Disease, Hx Pulmonary Embolism, Hx Heart Murmur Pulmonary Medical History: Reports: Hx Bronchitis - FEW YEARS AGO 2012 Denies: Hx Asthma, Hx COPD, Hx Pneumonia, Hx Respiratory Failure, Hx Sleep Apnea, Hx Tuberculosis Neurological Medical History: Denies: Hx Cerebrovascular Accident, Hx Seizures Endocrine Medical History: Reports: Hx Diabetes Mellitus Type 2 - edge of being diabetic. Denies: Hx Hyperthyroidism, Hx Hypothyroidism Renal/ Medical History: Reports: Hx Benign Prostatic Hyperplasia, Hx Kidney Stones. Denies: Hx End Stage Renal Disease, Hx Peritoneal Dialysis Malignancy Medical History: Denies Hx Lung Cancer GI Medical History: Reports: Hx Gastroesophageal Reflux Disease. Denies: Hx Crohn's Disease, Hx Hiatal Hernia, Hx Irritable Bowel, Hx Liver Failure, Hx Pancreatitis, Hx Ulcer Musculoskeltal Medical History: Reports Hx Arthritis - OA, Denies Hx Fibromyalgia, Denies Hx Muscular Dystrophy Psychiatric Medical History: Denies: Hx Bipolar Disorder, Hx Depression, Hx Post Traumatic Stress Disorder Traumatic Medical History: Reports: Hx Fractures - right hand Past Surgical History: Denies: Hx Appendectomy, Hx Bowel Surgery, Hx Cholecystectomy, Hx Colostomy, Hx Coronary Artery Bypass Graft, Hx Gastric Bypass Surgery, Hx Herniorrhaphy, Hx Pacemaker, Hx Tonsillectomy - Immunizations Immunizations up to date: Yes Hx Diphtheria, Pertussis, Tetanus Vaccination: Yes History of Influenza Vaccine for 05/2017 - 10/2017 Season: Yes Influenza Administration Date for 05/2017 - 10/2017 Season: 05/19/17 Physical Exam - Vital signs Vitals: Temp Pulse Resp BP Pulse Ox 97.9 F 97 18 138/71 H 95 03/22/19 18:56 03/22/19 18:56 03/22/19 18:56 03/22/19 18:56 03/22/19 18:56 Course - Vital Signs Vital signs: Temp Pulse Resp BP Pulse Ox 97.9 F 97 18 138/71 H 95 03/22/19 18:56 03/22/19 18:56 03/22/19 18:56 03/22/19 18:56 03/22/19 18:56 Doctor's Discharge - Discharge Referrals: AUBREY ALCALA MD [Primary Care Provider] - Follow up as needed
--- NOTE | 2019-03-22 20:18 | RADIOLOGY REPORT (SQ) ---
EXAM DESCRIPTION: XR CHEST 2 VIEWS COMPLETED DATE/TME: 03/22/2019 19:08 CLINICAL HISTORY: 69 years, Male, chest pain COMPARISON: Multiple priors, most recent from 07/01/2018 NUMBER OF VIEWS: Two TECHNIQUE: Frontal and lateral radiograph of the chest were obtained LIMITATIONS: None. FINDINGS: Cardiac and mediastinal contours are stable. Bands of opacity are noted about both lungs, indicating scar given their stability from 04/10/2018. There is elevation of the right hemidiaphragm, also unchanged. No pleural effusion or pneumothorax. IMPRESSION: Stable appearance of the chest without evidence of acute disease. copyright 2010 [employer]- All Rights Reserved
[2019-03-22 20:54] LABS: ABSOLUTE BASOPHILS # (AUTO) 0.1 10^3/uL (0.0-0.2); ABSOLUTE EOSINOPHILS # (AUTO) 0.3 10^3/uL (0.0-0.6); ABSOLUTE LYMPHOCYTES (AUTO) 1.5 10^3/uL (0.5-4.7); ABSOLUTE MONOCYTES (AUTO) 1.2 10^3/uL (0.1-1.4); ABSOLUTE NEUT (AUTO) 9.4 10^3/uL (1.7-8.2); BASOPHILS % (AUTO) 0.7 % (0-2); EOSINOPHILS % (AUTO) 2.4 % (0-6); HEMATOCRIT 36.8 % (37.9-51.0); HEMOGLOBIN 12.5 g/dL (13.5-17.0); MEAN CORPUSCULAR HEMOGLOBIN 31.3 pg (27.0-33.4); MEAN CORPUSCULAR HGB CONC 34.1 g/dL (32.0-36.0); MEAN CORPUSCULAR VOLUME 92 fl (80-97); MONOCYTES % (AUTO) 9.3 % (3-13); PLATELET COUNT 197 10^3/uL (150-450); RED BLOOD COUNT 4.01 10^6/uL (4.35-5.55); RED CELL DISTRIBUTION WIDTH 14.4 % (11.5-14.0); SEGMENTED NEUTROPHILS % (AUTO) 75.6 % (42-78); TOTAL CELLS COUNTED % (AUTO) 100 %; WHITE BLOOD COUNT 12.5 10^3/uL (4.0-10.5)
[2019-03-22 21:15] LABS: ALBUMIN 4.6 g/dL (3.5-5.0); ALKALINE PHOSPHATASE 89 U/L (38-126); ANION GAP 10 (5-19); ASPARTATE AMINO TRANSFERASE 35 U/L (17-59); BILIRUBIN,DIRECT 0.4 mg/dL (0.0-0.4); BILIRUBIN,TOTAL 0.4 mg/dL (0.2-1.3); BLOOD UREA NITROGEN 43 mg/dL (7-20); CALCIUM 10.5 mg/dL (8.4-10.2); CARBON DIOXIDE 27 mmol/L (22-30); CHLORIDE 104 mmol/L (98-107); CREATINE KINASE 106 U/L (55-170); GLUCOSE 155 mg/dL (75-110); POTASSIUM 4.4 mmol/L (3.6-5.0); TOTAL PROTEIN 8.2 g/dL (6.3-8.2)
[2019-03-22 21:26] LABS: TROPONIN I < 0.012 ng/mL
--- NOTE | 2019-03-22 22:21 | ER Document Report ---
ED General - General Chief Complaint: Chest Pain Stated Complaint: CHEST PAIN Time Seen by Provider: 03/22/19 18:52 Primary Care Provider: AISHA THORNTON MD [Primary Care Provider] - 03/25/19 Notes: Patient is a pleasant 69-year-old male who presents with complaint of pain to his right shoulder and into his right chest. Patient says the pain was initially constant but made much worse with taking a deep breath. No he does not have any pain at rest but he still has pain with any deep breathing. He denies any recent fevers or infections. He does have some left shoulder pain but this has been chronic for several months and is unchanged. No abdominal pain. No vomiting. No history of coronary disease. No history of diabetes. No history of hypertension. His primary care physician is Dr. Thornton. Patient t akes pain medication such as Tylenol codeine and NSAIDs for chronic knee pain. Patient is a former smoker but has not smoked now for many years. No other complaints at this time. TRAVEL OUTSIDE OF THE [place] IN LAST 30 DAYS: No - Related Data Allergies/Adverse Reactions: No Known Allergies Allergy (Verified 03/22/19 18:42) Past Medical History - Social History Smoking Status: Former Smoker Frequency of alcohol use: None Drug Abuse: None Family History: None Patient has suicidal ideation: No Patient has homicidal ideation: No - Past Medical History Cardiac Medical History: Reports: Hx Hypercholesterolemia, Hx Hypertension Denies: Hx Atrial Fibrillation, Hx Congestive Heart Failure, Hx Coronary Artery Disease, Hx Heart Attack, Hx Peripheral Vascular Disease, Hx Pulmonary Embolism, Hx Heart Murmur Pulmonary Medical History: Reports: Hx Bronchitis - FEW YEARS AGO 2012 Denies: Hx Asthma, Hx COPD, Hx Pneumonia, Hx Respiratory Failure, Hx Sleep Apnea, Hx Tuberculosis Neurological Medical History: Denies: Hx Cerebrovascular Accident, Hx Seizures Endocrine Medical History: Reports: Hx Diabetes Mellitus Type 2 - edge of being diabetic. Denies: Hx Hyperthyroidism, Hx Hypothyroidism Renal/ Medical History: Reports: Hx Benign Prostatic Hyperplasia, Hx Kidney Stones. Denies: Hx End Stage Renal Disease, Hx Peritoneal Dialysis Malignancy Medical History: Denies Hx Lung Cancer GI Medical History: Reports: Hx Gastroesophageal Reflux Disease. Denies: Hx Crohn's Disease, Hx Hiatal Hernia, Hx Irritable Bowel, Hx Liver Failure, Hx Panc reatitis, Hx Ulcer Musculoskeletal Medical History: Reports Hx Arthritis - OA, Denies Hx Fibromyalgia, Denies Hx Muscular Dystrophy Psychiatric Medical History: Denies: Hx Bipolar Disorder, Hx Depression, Hx Post Traumatic Stress Disorder Traumatic Medical History: Reports: Hx Fractures - right hand Past Surgical History: Reports: Hx Orthopedic Surgery - bilateral knee replacement. Denies: Hx Appendectomy, Hx Bowel Surgery, Hx Cholecystectomy, Hx Colostomy, Hx Coronary Artery Bypass Graft, Hx Gastric Bypass Surgery, Hx Herniorrhaphy, Hx Pacemaker, Hx Tonsillectomy - Immunizations Immunizations up to date: Yes Hx Diphtheria, Pertussis, Tetanus Vaccination: Yes Hx Pneumococcal Vaccination: 05/19/17 Review of Systems - Review of Systems Notes: My Normal Review Basic REVIEW OF SYSTEMS: CONSTITUTIONAL : Denies fever, chills, or sweats. Denies recent illness. EENT: Denies eye, ear, throat, or mouth pain or symptoms. Denies nasal or sinus congestion. CARDIOVASCULAR: Right-sided pain in chest with deep breathing. RESPIRATORY: Denies cough, cold, or chest congestion. Denies shortness of breath, difficulty breathing, or wheezing. GASTROINTESTINAL: Denies abdominal pain. Denies nausea, vomiting, or diarrhea. MUSCULOSKELETAL: Denies neck or back pain or joint pain or swelling. SKIN: Denies rash or skin lesions. NEUROLOGICAL: Denies altered mental status or loss of consciousness. Denies headache. Denies weakness or paralysis or loss of use of either side. Denies problems with gait or speech. Denies sensory or motor loss. ALL OTHER SYSTEMS REVIEWED AND NEGATIVE. Physical Exam - Vital signs Vitals: Temp Pulse Resp BP Pulse Ox 97.9 F 97 18 138/71 H 95 03/22/19 18:56 03/22/19 18:56 03/22/19 18:56 03/22/19 18:56 03/22/19 18:56 - Notes Notes: General Appearance: Well nourished, alert, cooperative, no acute distress, no obvious discomfort. Well-appearing. Vitals: reviewed, See vital signs table. Head: no swelling or tenderness to the head Eyes: PERRL, EOMI, Conjuctiva clear Mouth: No decreasd moisture S wall: No reproducible pain to palpation of chest wall. Lungs: No wheezing, No rales, No rhonci, No accessory muscle use, good air exchange bilaterally. Heart: Normal rate, Regular rythm, No murmur, no rub Abdomen: Normal BS, soft, No rigidity, No abdominal tenderness, No guarding, no rebound, no abdominal masses, no organomegaly Extremities: strength 5/5 in all extremities, good pulses in all extremities, no swelling or tenderness in the extremities with palpation, no edema. Skin: warm, dry, appropriate color, no rash Neuro: speech clear, oriented x 3, normal affect, responds appropriately to questions. Course - Re-evaluation Re-evalutation: 03/23/19 06:35 Pain on exam is very pleuritic. I think coronary disease is unlikely. His heart score 3. I did explain to him the heart score 3 mean that his risk of serious cardiac event next 6 weeks proximal 1/2%. I informed him I think is saf e for outpatient follow-up. Patient is agreeable follow-up with his outpatient doctor, Dr. Thornton. Suspect most likely is pleurisy. His pain only occurs with deep breathing at this time. Patient is not tachycardic, not tachypnea, not hypoxemic and he has negative d-dimer and therefore I do not suspect PE. Feel that the patient is safe to be discharged home. I strongly encouraged him to return to ER if he has worsening symptoms or feels unwell. Dictation of this chart was performed using voice recognition software; therefore, there may be some unintended grammatical errors. - Vital Signs Vital signs: Temp Pulse Resp BP Pulse Ox 98.4 F 79 15 106/67 99 03/23/19 01:55 03/23/19 01:55 03/23/19 01:55 03/23/19 01:55 03/23/19 01:55 - Laboratory Result Diagrams: 03/22/19 20:30 03/22/19 20:30 Laboratory results interpreted by me: 03/22/19 03/22/19 20:30 20:30 WBC 12.5 H RBC 4.01 L Hgb 12.5 L Hct 36.8 L RDW 14.4 H Lymphocytes % 12.0 L Absolute Neutrophils 9.4 H BUN 43 H Creatinine 1.27 H Est GFR (Non-Af Amer) 56 L Glucose 155 H Calcium 10.5 H - EKG Interpretation by Me Additional EKG results interpreted by me: 03/22/19 22:20 EKG is reviewed and interpreted by me. EKG shows sinus rhythm with a rate of [address] segment elevation or depression. No ischemic T wave inversions. Patient does have right bundle branch block. This is unchanged comparison previous EKG from July 01, 2018. HI interval is within normal range. QRS duration and QT intervals are prolonged. Discharge - Discharge Clinical Impression: Chest pain Qualifiers: Chest pain type: pleurodynia Qualified Code(s): R07.81 - Pleurodynia Condition: Good Disposition: HOME, SELF-CARE Additional Instructions: As discussed with you I suspect that your pain is related to pleurisy. This is pain due to inflammation of the lungs that is worse with taking a deep breath. Please do not overexert yourself over the next several days. Please follow-up with your primary care doctor this week for reevaluation. Currently work-up looking at your heart does not show any concerning findings; however, you should still have a low threshold to return to the ER if you have worsening chest pain, difficulty breathing, fevers, coughing up of blood, or feel like you are worsening in any way. You can take ibuprofen 600 mg up to every 6 hours as needed for pain. Referrals: AISHA THORNTON MD [Primary Care Provider] - 03/25/19
--- NOTE | 2019-03-22 23:12 | EKG REPORT ---
SEVERITY:- ABNORMAL ECG - SINUS RHYTHM RIGHT BUNDLE BRANCH BLOCK : Confirmed by: Yasmin Vaughn MD 22-Mar-2019 23:12:18
[2019-03-23 01:50] VITALS: BP 106/67
== END 2019-03-23 01:50 | disposition home or self-care (01) ==
LOC: ER 18:42
DX: R07.81 Pleurodynia (principal); M25.511 Pain in right shoulder; E78.00 Pure hypercholesterolemia, unspecified; I10 Essential (primary) hypertension; Z87.442 Personal history of urinary calculi; Z96.653 Presence of artificial knee joint, bilateral
CPT/HCPCS: 93005; 94640; 99284; 36415; 82553; 82550; 85025; 80053; 84484; 85379; 71046; 93010; A9270

== ENCOUNTER → 2020-06-30 | Outpatient (CLI) | payer MEDICARE ==
--- NOTE | 2020-06-30 13:01 | RADIOLOGY REPORT (SQ) ---
EXAM DESCRIPTION: COOKIE SWALLOW IMAGES COMPLETED DATE/TIME: 06/30/2020 8:34 am REASON FOR STUDY: GASTRO-ESOPHAGEAL REFLUX DISEASE WITHOUT ESOPHAGITIS K21.9 GASTRO-ESOPHAGEAL REFL UX DISEASE WITHOUT ESOPHAGITIS difficulty swallowing COMPARISON: None. TECHNIQUE: Videofluoroscopic swallowing examination was performed in conjunction with speech patholo gy. Videofluoroscopic imaging was obtained and reviewed and these are the findings: RADIATION DOSE: 1.1 minutes of fluoroscopy was used. 1 images saved to PACS. LIMITATIONS: None FINDINGS: The patient was brought into the fluoro room and placed upright on a modified barium swall ow chair. The patient was then given multiple consistencies mixed with barium to swallow under live fluoroscopic video guidance. According to the Speech Pathologist there was no penetration or aspirat ion. IMPRESSION: NO EVIDENCE OF PENETRATION OR ASPIRATION. PLEASE SEE SPEECH PATHOLOGIST REPORT FOR OTHER FINDINGS AND RECOMMENDATIONS. COMMENT: Quality ID [id number]: Final reports for procedures using fluoroscopy that document radiation exp osure indices, or exposure time and number of fluorographic images (if radiation exposure indices are not available) TECHNICAL DOCUMENTATION: JOB ID: [id number] 2010 [email or web address]- All Rights Reserved Reading location - IP/workstation name: [email or web address] [id number]
--- NOTE | 2020-06-30 13:17 | ST Modified Barium Swallow ---
Recommendation - Recommendations Recommendations: No diet change recommendations, normal oral and pharyngeal phase of the swallow noted. Medical Diagnoses - Medical Diagnoses Medical Diagnosis Description & ICD-10 Code(s): K21.9, R13.10 Other Medical Diagnoses/Co-Morbidities: per patient report: reflux - ICD-10 Tx Diagnosis Coding (1) Gastro-esophageal reflux disease without esophagitis ICD-10 Code(s): K21.9 - GASTRO-ESOPHAGEAL REFLUX DISEASE WITHOUT ESOPHAGITIS (2) Dysphagia, unspecified ICD-10 Code(s): R13.10 - DYSPHAGIA, UNSPECIFIED ST Modified Barium Swallow - General Date: 06/30/20 Referring Physician: Dr. Tapia Risks/Precautions: Falls Date of Onset: 07/19/19 - approximate onset date Reason for Referral: cough - History History obtained from: Patient -: Medical - Patient provided his own medical history this day. Patient reports having frequent coughing since July of 2019, reports that it is worse in the morning. He does report this improving recently however due to new medication from his doctor, was not able to name medication. Patient has not had recent pneumonia and does not report pertinent neurological history. Medications: patient unable to give complete medication list, does report omeprazole and pills "for his chest". Allergies: none reported - Functional Status Prior Functional Status: INDEPENDENT: feeding - independent Current Functional Limitations: feeding - independent - Subjective Patient/caregiver goal(s): r/o aspiration Cognitive-Linguistic Function: Functional Speech Intelligibility: WNL Current Nutritional Means: PO Current PO diet: Regular Current symptoms: Coughing Pain: Patient reports, 0/5 - Objective Assessment: Upright, Left Lateral - Food Trials Used Food trials used: Thin liquids, Pureed, Regular The patient: Was Able to Self Feed - Oral-Motor Skills Velo-pharyngeal function: Unremarkable Laryngeal Function: clear voicing - Assessment Oral prep: Normal Labial closure: Adequate Leakage: None Mastication: Adequate Lingual Movement: Normal Oral stage: Normal for this Procedure - Pharyngeal Stage Initiation of Pharyngeal Stage Reflex: Normal Decreased laryngeal elevation: No Reduced Velopharyngeal Closure: no Reduced pressure generation: No reduced tongue-based retraction: No Pre-swallow pooling in valleculae: None Pre-Swallow pooling in pyriforms: None Reduced Thyro-Hyoid approximation: No Reduced epiglottic excursion: No Reduced pharyngeal peristalsis/contraction: No Post-swallow residulas vallecular: None Post-Swallow residuals in pyriforms: None Reduced Cricopharyngeal opening: No - Fall Risk Assessment Medications/Conditions that increase fall risks include: Antidepressants, sedatives, anti-arrhythmic, diuretic, benzodiazipenes, neuroleptics. BP regulation problems, cardiac problems, balance or gait deficits, neurological problems. Fall Risk Actions Taken: No action needed - Behavioral Observations During evaluation process patient: was cooperative, able to answer questions - Treatment / Educational Needs: Treatment/Education Needs: Treatment consisted of patient education on the role of the Speech Pathologist. Patient's plan of care and golas were communicated as well as scheduling and attendance policies. Recommendations for initial home program were shared. Patient demonstrated understanding and verbalized agreement. - Impression/Summary Laryngeal Penetration: No Tracheal Aspiration: no Patient presents with: Normal swallow at eval Risk of Aspiration: Minimal - Recommendations Solid diet recommendations: Regular Liquid Diet Modification: Thin Dysphagia therapy with STONE CUTTER: no Information, Precautions and Recommendations: Patient (Written) Other recommendations: May wish to see ENT if chronic cough persists. - Time Total Time: 30 - Plan of Care Strategies to optimize patient understanding include:: ongoing assessment of educational needs, implementation of educational strategies, and re-education. - - -: Thank you for the opportunity to work with this patient and his/her family. Should you have any questions about this patient's plan or progress, I can be reached at [phone].
--- OUTSIDE RECORDS SUMMARY | 2020-07-01 14:59 | XMS REPORT ---
:1950 Author Organization [facility] Address [facility] [address] [place] [id number] Care Team Providers Name Role Phone Unavailable Unavailable Unavailable Allergies, Adverse Reactions, Alerts This patient has no known allergies or adverse reactions. Medications Ordered Filled Start Stop Current Ordering Indication Dosage Frequency Signature Comments Components Medication Medication Date Date Medication? Clinician (SIG) Name Name diclofenac No diclofenac 1 % topical 1 % gel JOSE 2 topical GRAMS EXT gel JOSE 2 AA BID UTD GRAMS EXT AA BID UTD ibuprofen No ibuprofen 800 mg 800 mg tablet TAKE tablet ONE TABLET TAKE ONE BY MOUTH TABLET BY WITH FOOD MOUTH WITH OR MILK FOOD OR NEEDED MILK THREE TIMES NEEDED A DAY THREE TIMES A DAY piroxicam No piroxicam 20 mg 20 mg capsule TK capsule TK 1 C PO QD 1 C PO QD WITH FOOD WITH FOOD Enteric No 1 Q1D Enteric Coated Coated Aspirin 81 Aspirin 81 mg mg tablet,bandar tablet,del yed release ayed Take 1 release tablet Take 1 every day tablet by oral every day route. by oral route. hydrocodone No 1 Q6H hydrocodon 5 e 5 mg-acetamin mg-acetami ophen 325 nophen 325 mg tablet mg tablet Take 1 Take 1 tablet tablet every 6 every 6 hours by hours by oral route. oral route. oxycodone 5 No 1 Q5H oxycodone mg tablet 5 mg Take 1 tablet tablet Take 1 every 4-6 tablet hours by every 4-6 oral route. hours by oral route. tramadol 50 No 1 Q6H tramadol mg tablet 50 mg Take 1 tablet tablet Take 1 every 6 tablet hours by every 6 oral route hours by as needed. oral route as needed. amoxicillin No amoxicilli 500 mg n 500 mg capsule capsule azithromyci No azithromyc n 500 mg in 500 mg tablet tablet prednisone No prednisone 20 mg 20 mg tablet tablet acetaminoph No acetaminop en 300 hen 300 mg-codeine mg-codeine 30 mg 30 mg tablet tablet atorvastati No atorvastat n 10 mg in 10 mg tablet Take tablet by oral Take by route for oral route 90 days. for 90 days. baclofen 10 No baclofen mg tablet 10 mg Take by tablet oral route Take by for 30 oral route days. for 30 days. lisinopril No lisinopril 20 20 mg-hydrochl mg-hydroch orothiazide lorothiazi 12.5 mg de 12.5 mg tablet Take tablet by oral Take by route for oral route 90 days. for 90 days. Tylenol-Cod No 1 Q6H Tylenol-Co eine #3 300 deine #3 mg-30 mg 300 mg-30 tablet Take mg tablet 1 tablet Take 1 every 6 tablet hours by every 6 oral route hours by as needed oral route for 2 days. as needed for 2 days. Problems Condition Condition Condition Status Onset Resolution Last Treatin g Comments Name Details Category Date Date Treatment Clinician Date Cervical Cervical Problem Active 2018-08 radiculopat Radiculopat 1-19 hy hy 00:00: 00 Localized, Localized, Problem Active 2018-08 primary Primary 0-29 osteoarthri Osteoarthri 00:00: tis of the tis of the 00 shoulder Shoulder region Region Bursitis of Bursitis of Problem Active 2018-08 left Left 0-29 shoulder Shoulder 00:00: 00 Pain in Pain in Problem Active 2017-08 left knee Left Knee 2-31 00:00: 00 Pain in Pain in Problem Active 2017-08 right knee Right Knee 0-24 00:00: 00 Joint Joint Problem Active 2017-08 stiffness Stiffness 0-12 00:00: 00 Muscle Muscle Problem Active 2017-08 weakness Weakness 0-12 00:00: 00 History of History of Problem Active 2017-08 total knee Total Knee 0-12 arthroplast Arthroplast 00:00: y y 00 Implantatio Implantatio Problem Active 2017-08 n of joint n of Joint 0-12 prosthesis Prosthesis 00:00: 00 Hypercholes Hypercholes Problem Active terolemia terolemia 8 00:00: 00 Hypertensiv Hypertensiv Problem Active e disorder e Disorder 8 00:00: 00 Arthritis Arthritis Problem Active 8 00:00: 00 Procedures Procedure Date / Time Performed Performing Clinician Devic e RADIOLOGIC EXAM KNEE 3 VIEWS 2020-01-19 00:00:00 XR, cervical spine 2019-07-07 00:00:00 MRI, cervical spine, w/o contrast 2019-07-07 00:00:00 XR, shoulder 2019-06-16 00:00:00 RADIOLOGIC EXAM KNEE 3 VIEWS 2018-09-18 00:00:00 RADIOLOGIC EXAM KNEE 3 VIEWS 2018-09-11 00:00:00 Total Knee Arthroplasty 2018-07-28 00:00:00 Total Knee Arthroplasty (Surg) 2018-07-28 00:00:00 Knee Manipulation under Anesthesia 2018-06-18 00:00:00 (Surg) Total Knee Arthroplasty 2018-05-12 00:00:00 Total Knee Arthroplasty (Surg) 2018-05-12 00:00:00 Knee Surgery 2017-08-19 00:00:00 Results Test Description Test Time Test Comments Text Results Atomic Results Result Comments basic metabolic panel 2018-06-18 00:00:00 Test Item Value Reference Range Comments calcium (test code = calcium) 9.9 mg/dL 8.4-10.2 glucose (test code = glucose) 114 mg/dL 75-110 blood urea nitrogen (test code = blood urea nitrogen) 32 mg/dL 7-20 creatinine result (test code = creatinine result) 0.99 mg/dL 0.52-1.25 eGFR,non (test code = eGFR,non > 60 >60 [place]ijani) eGFR, (test code = eGFR,) > 60 >60 potassium (test code = potassium) 4.4 mmol/L 3.6-5.0 chloride (test code = chloride) 102 mmol/L 98-107 carbon dioxide (test code = carbon dioxide) 25 mmol/L 22-3 0 sodium (test code = sodium) 139.3 mmol/L 137-145 anion gap (test code = anion gap) 12 5-19 Complete blood count (hemogram) panel - Blood by Automated [id number] 00:00:00 Test Item Value Reference Range Comments white blood count (test code = white blood 7.7 10 3/uL 4.0-1 0.5 count) red blood count (test code = red blood count) 4.17 10 6/uL 4. 35-5.55 hemoglobin (test code = hemoglobin) 13.3 g/dL 13.5-17.0 hematocrit (test code = hematocrit) 38.6 % 37.9-51.0 mean corpuscular volume (test code = mean 93 fL 80-97 corpuscular volume) mean corpuscular hemoglobin (test code = mean 31.9 pg 27 .0-33.4 corpuscular hemoglobin) mean corpuscular HGB conc (test code = mean 34.4 g/dL 32.0 -36.0 corpuscular HGB conc) red cell distribution width (test code = red 13.9 % 11. 5-14.0 cell distribution width) platelet count (test code = platelet count) 147 10 3/uL 150- 450 basic metabolic [id number] 00:00:00 Test Item Value Reference Range Comments calcium (test code = calcium) 9.9 mg/dL 8.4-10.2 glucose (test code = glucose) 114 mg/dL 75-110 blood urea nitrogen (test code = blood urea 32 mg/dL 7-20 nitrogen) creatinine result (test code = creatinine 0.99 mg/dL 0.52-1 .25 result) eGFR,non (test code = eGFR,non > 60 >60 ) eGFR, (test code = eGFR, > 60 >60 [place]ijani) potassium (test code = potassium) 4.4 mmol/L 3.6-5.0 chloride (test code = chloride) 102 mmol/L 98-107 carbon dioxide (test code = carbon dioxide) 25 mmol/L 22-3 0 sodium (test code = sodium) 139.3 mmol/L 137-145 anion gap (test code = anion gap) 12 5-19 Complete blood count (hemogram) panel - Blood by Automated [id number] 00:00:00 Test Item Value Reference Range Comments white blood count (test code = white blood 7.7 10 3/uL 4.0-1 0.5 count) red blood count (test code = red blood count) 4.17 10 6/uL 4. 35-5.55 hemoglobin (test code = hemoglobin) 13.3 g/dL 13.5-17.0 hematocrit (test code = hematocrit) 38.6 % 37.9-51.0 mean corpuscular volume (test code = mean 93 fL 80-97 corpuscular volume) mean corpuscular hemoglobin (test code = mean 31.9 pg 27 .0-33.4 corpuscular hemoglobin) mean corpuscular HGB conc (test code = mean 34.4 g/dL 32.0 -36.0 corpuscular HGB conc) red cell distribution width (test code = red 13.9 % 11. 5-14.0 cell distribution width) platelet count (test code = platelet count) 147 10 3/uL 150- 450 basic metabolic [id number] 00:00:00 Test Item Value Reference Range Comments calcium (test code = calcium) 9.9 mg/dL 8.4-10.2 glucose (test code = glucose) 114 mg/dL 75-110 blood urea nitrogen (test code = blood urea 32 mg/dL 7-20 nitrogen) creatinine result (test code = creatinine 0.99 mg/dL 0.52-1 .25 result) eGFR,non (test code = eGFR,non > 60 >60 ) eGFR, (test code = eGFR, > 60 >60 [place]) potassium (test code = potassium) 4.4 mmol/L 3.6-5.0 chloride (test code = chloride) 102 mmol/L 98-107 carbon dioxide (test code = carbon dioxide) 25 mmol/L 22-3 0 sodium (test code = sodium) 139.3 mmol/L 137-145 anion gap (test code = anion gap) 12 5-19 Complete blood count (hemogram) panel - Blood by Automated [id number] 00:00:00 Test Item Value Reference Range Comments white blood count (test code = white blood 7.7 10 3/uL 4.0-1 0.5 count) red blood count (test code = red blood count) 4.17 10 6/uL 4. 35-5.55 hemoglobin (test code = hemoglobin) 13.3 g/dL 13.5-17.0 hematocrit (test code = hematocrit) 38.6 % 37.9-51.0 mean corpuscular volume (test code = mean 93 fL 80-97 corpuscular volume) mean corpuscular hemoglobin (test code = mean 31.9 pg 27 .0-33.4 corpuscular hemoglobin) mean corpuscular HGB conc (test code = mean 34.4 g/dL 32.0 -36.0 corpuscular HGB conc) red cell distribution width (test code = red 13.9 % 11. 5-14.0 cell distribution width) platelet count (test code = platelet count) 147 10 3/uL 150- 450 basic metabolic [id number] 00:00:00 Test Item Value Reference Range Comments calcium (test code = calcium) 9.9 mg/dL 8.4-10.2 glucose (test code = glucose) 114 mg/dL 75-110 blood urea nitrogen (test code = blood urea 32 mg/dL 7-20 nitrogen) creatinine result (test code = creatinine 0.99 mg/dL 0.52-1 .25 result) eGFR,non (test code = eGFR,non > 60 >60 ) eGFR, (test code = eGFR, > 60 >60 [place]ij[place]) potassium (test code = potassium) 4.4 mmol/L 3.6-5.0 chloride (test code = chloride) 102 mmol/L 98-107 carbon dioxide (test code = carbon dioxide) 25 mmol/L 22-3 0 sodium (test code = sodium) 139.3 mmol/L 137-145 anion gap (test code = anion gap) 12 5-19 Complete blood count (hemogram) panel - Blood by Automated [id number] 00:00:00 Test Item Value Reference Range Comments white blood count (test code = white blood 7.7 10 3/uL 4.0-1 0.5 count) red blood count (test code = red blood count) 4.17 10 6/uL 4. 35-5.55 hemoglobin (test code = hemoglobin) 13.3 g/dL 13.5-17.0 hematocrit (test code = hematocrit) 38.6 % 37.9-51.0 mean corpuscular volume (test code = mean 93 fL 80-97 corpuscular volume) mean corpuscular hemoglobin (test code = mean 31.9 pg 27 .0-33.4 corpuscular hemoglobin) mean corpuscular HGB conc (test code = mean 34.4 g/dL 32.0 -36.0 corpuscular HGB conc) red cell distribution width (test code = red 13.9 % 11. 5-14.0 cell distribution width) platelet count (test code = platelet count) 147 10 3/uL 150- 450 basic metabolic [id number] 00:00:00 Test Item Value Reference Range Comments calcium (test code = calcium) 9.9 mg/dL 8.4-10.2 glucose (test code = glucose) 114 mg/dL 75-110 blood urea nitrogen (test code = blood urea 32 mg/dL 7-20 nitrogen) creatinine result (test code = creatinine 0.99 mg/dL 0.52-1 .25 result) eGFR,non (test code = eGFR,non > 60 >60 ) eGFR, (test code = eGFR, > 60 >60 a[place]ij[place]) potassium (test code = potassium) 4.4 mmol/L 3.6-5.0 chloride (test code = chloride) 102 mmol/L 98-107 carbon dioxide (test code = carbon dioxide) 25 mmol/L 22-3 0 sodium (test code = sodium) 139.3 mmol/L 137-145 anion gap (test code = anion gap) 12 5-19 Complete blood count (hemogram) panel - Blood by Automated [id number] 00:00:00 Test Item Value Reference Range Comments white blood count (test code = white blood 7.7 10 3/uL 4.0-1 0.5 count) red blood count (test code = red blood count) 4.17 10 6/uL 4. 35-5.55 hemoglobin (test code = hemoglobin) 13.3 g/dL 13.5-17.0 hematocrit (test code = hematocrit) 38.6 % 37.9-51.0 mean corpuscular volume (test code = mean 93 fL 80-97 corpuscular volume) mean corpuscular hemoglobin (test code = mean 31.9 pg 27 .0-33.4 corpuscular hemoglobin) mean corpuscular HGB conc (test code = mean 34.4 g/dL 32.0 -36.0 corpuscular HGB conc) red cell distribution width (test code = red 13.9 % 11. 5-14.0 cell distribution width) platelet count (test code = platelet count) 147 10 3/uL 150- 450 Assessments Condition Name Status Diagnosis Date Treating Clinici an History of total knee arthroplasty Active 2020-03-01 10 :58:00 Pain in right knee Active 2020-03-01 10:58:01 Pain in left knee Active 2020-03-01 10:58:01 Pain in left knee Active 2020-01-19 14:29:46 Pain in right knee Active 2020-01-19 14:29:46 History of total knee arthroplasty Active 2020-01-19 14 :29:47 Knee pain Active 2020-01-19 14:34:24 Neck pain Active 2019-07-07 08:46:16 Cervical radiculopathy Active 2019-07-07 09:23:24 Bursitis of left shoulder Active 2019-07-07 09:29:35 Localized, primary osteoarthritis of Active 2019-06-16 14:52:30 the shoulder region Shoulder pain Active 2019-06-16 14:12:30 Bursitis of left shoulder Active 2019-06-16 14:52:11 Replacement of total knee joint Active 2018-12-11 12:42 :55 Pain in lower limb Active 2018-12-11 12:43:05 Pain in left knee Active 2018-11-13 09:58:25 Pain in right knee Active 2018-11-13 09:58:25 History of total knee arthroplasty Active 2018-11-13 09 :58:26 Muscle weakness Active 2018-10-08 07:50:26 Joint stiffness Active 2018-10-08 07:50:26 Pain in right knee Active 2018-10-08 07:50:26 History of total knee arthroplasty Active 2018-10-08 07 :50:26 Implantation of joint prosthesis Active 2018-10-08 07:5 0:26 Pain in left knee Active 2018-10-08 07:50:26 Muscle weakness Active 2018-09-29 12:28:26 Joint stiffness Active 2018-09-29 12:28:26 Pain in right knee Active 2018-09-29 12:28:26 History of total knee arthroplasty Active 2018-09-29 12 :28:26 Implantation of joint prosthesis Active 2018-09-29 12:2 8:26 Pain in left knee Active 2018-09-29 12:28:26 Muscle weakness Active 2018-09-24 10:02:22 Joint stiffness Active 2018-09-24 10:02:22 Pain in right knee Active 2018-09-24 10:02:22 History of total knee arthroplasty Active 2018-09-24 10 :02:22 Implantation of joint prosthesis Active 2018-09-24 10:0 2:22 Pain in left knee Active 2018-09-24 10:02:22 Muscle weakness Active 2018-09-22 11:58:16 Joint stiffness Active 2018-09-22 11:58:16 Pain in right knee Active 2018-09-22 11:58:16 History of total knee arthroplasty Active 2018-09-22 11 :58:16 Implantation of joint prosthesis Active 2018-09-22 11:5 8:16 Pain in left knee Active 2018-09-22 11:58:16 Pain in right knee Active 2018-09-18 10:22:39 Pain in left knee Active 2018-09-18 10:22:40 Replacement of total knee joint Active 2018-09-18 12:09 :55 Pain in right knee Active 2018-09-18 10:22:39 Pain in left knee Active 2018-09-18 10:22:40 Replacement of total knee joint Active 2018-09-18 12:09 :55 Muscle weakness Active 2018-09-17 08:34:40 Joint stiffness Active 2018-09-17 08:34:40 Pain in right knee Active 2018-09-17 08:34:40 History of total knee arthroplasty Active 2018-09-17 08 :34:40 Implantation of joint prosthesis Active 2018-09-17 08:3 4:40 Pain in left knee Active 2018-09-17 08:34:40 Muscle weakness Active 2018-09-17 08:34:40 Joint stiffness Active 2018-09-17 08:34:40 Pain in right knee Active 2018-09-17 08:34:40 History of total knee arthroplasty Active 2018-09-17 08 :34:40 Implantation of joint prosthesis Active 2018-09-17 08:3 4:40 Pain in left knee Active 2018-09-17 08:34:40 Implantation of joint prosthesis Active 2018-09-15 08:3 0:12 Pain in left knee Active 2018-09-15 08:30:12 Muscle weakness Active 2018-09-15 08:30:12 Joint stiffness Active 2018-09-15 08:30:12 Pain in right knee Active 2018-09-15 08:30:12 History of total knee arthroplasty Active 2018-09-15 08 :30:12 Implantation of joint prosthesis Active 2018-09-15 08:3 0:12 Pain in left knee Active 2018-09-15 08:30:12 Muscle weakness Active 2018-09-15 08:30:12 Joint stiffness Active 2018-09-15 08:30:12 Pain in right knee Active 2018-09-15 08:30:12 History of total knee arthroplasty Active 2018-09-15 08 :30:12 Muscle weakness Active 2018-09-12 10:21:21 Joint stiffness Active 2018-09-12 10:21:21 Pain in right knee Active 2018-09-12 10:21:21 History of total knee arthroplasty Active 2018-09-12 10 :21:21 Implantation of joint prosthesis Active 2018-09-12 10:2 1:22 Pain in left knee Active 2018-09-12 10:21:22 Muscle weakness Active 2018-09-12 10:21:21 Joint stiffness Active 2018-09-12 10:21:21 Pain in right knee Active 2018-09-12 10:21:21 History of total knee arthroplasty Active 2018-09-12 10 :21:21 Implantation of joint prosthesis Active 2018-09-12 10:2 1:22 Pain in left knee Active 2018-09-12 10:21:22 Pain in right knee Active 2018-09-11 08:41:21 Replacement of total knee joint Active 2018-09-14 10:01 :06 Pain in right knee Active 2018-09-11 08:41:21 Replacement of total knee joint Active 2018-09-14 10:01 :06 Muscle weakness Active 2018-09-09 11:59:25 Joint stiffness Active 2018-09-09 11:59:25 Pain in right knee Active 2018-09-09 11:59:25 History of total knee arthroplasty Active 2018-09-09 11 :59:25 Implantation of joint prosthesis Active 2018-09-09 11:5 9:25 Pain in left knee Active 2018-09-09 11:59:25 Muscle weakness Active 2018-09-09 11:59:25 Joint stiffness Active 2018-09-09 11:59:25 Pain in right knee Active 2018-09-09 11:59:25 History of total knee arthroplasty Active 2018-09-09 11 :59:25 Implantation of joint prosthesis Active 2018-09-09 11:5 9:25 Pain in left knee Active 2018-09-09 11:59:25 Muscle weakness Active 2018-09-03 11:23:00 Joint stiffness Active 2018-09-03 11:23:00 Pain in right knee Active 2018-09-03 11:23:00 History of total knee arthroplasty Active 2018-09-03 11 :23:00 Implantation of joint prosthesis Active 2018-09-03 11:2 3:00 Pain in left knee Active 2018-09-03 11:23:00 Muscle weakness Active 2018-09-03 11:23:00 Joint stiffness Active 2018-09-03 11:23:00 Pain in right knee Active 2018-09-03 11:23:00 History of total knee arthroplasty Active 2018-09-03 11 :23:00 Implantation of joint prosthesis Active 2018-09-03 11:2 3:00 Pain in left knee Active 2018-09-03 11:23:00 Muscle weakness Active 2018-09-01 11:14:07 Joint stiffness Active 2018-09-01 11:14:07 Pain in right knee Active 2018-09-01 11:14:07 History of total knee arthroplasty Active 2018-09-01 11 :14:07 Implantation of joint prosthesis Active 2018-09-01 11:1 4:07 Pain in left knee Active 2018-09-01 11:14:07 Muscle weakness Active 2018-09-01 11:14:07 Joint stiffness Active 2018-09-01 11:14:07 Pain in right knee Active 2018-09-01 11:14:07 History of total knee arthroplasty Active 2018-09-01 11 :14:07 Implantation of joint prosthesis Active 2018-09-01 11:1 4:07 Pain in left knee Active 2018-09-01 11:14:07 Muscle weakness Active 2018-08-28 10:07:47 Joint stiffness Active 2018-08-28 10:07:47 Pain in right knee Active 2018-08-28 10:07:47 History of total knee arthroplasty Active 2018-08-28 10 :07:47 Implantation of joint prosthesis Active 2018-08-28 10:0 7:47 Pain in left knee Active 2018-08-28 10:07:47 Muscle weakness Active 2018-08-28 10:07:47 Joint stiffness Active 2018-08-28 10:07:47 Pain in right knee Active 2018-08-28 10:07:47 History of total knee arthroplasty Active 2018-08-28 10 :07:47 Implantation of joint prosthesis Active 2018-08-28 10:0 7:47 Pain in left knee Active 2018-08-28 10:07:47 Muscle weakness Active 2018-08-25 16:59:23 Joint stiffness Active 2018-08-25 16:59:23 Pain in right knee Active 2018-08-25 16:59:23 History of total knee arthroplasty Active 2018-08-25 16 :59:23 Implantation of joint prosthesis Active 2018-08-25 16:5 9:23 Pain in left knee Active 2018-08-25 16:59:23 Muscle weakness Active 2018-08-25 16:59:23 Joint stiffness Active 2018-08-25 16:59:23 Pain in right knee Active 2018-08-25 16:59:23 History of total knee arthroplasty Active 2018-08-25 16 :59:23 Implantation of joint prosthesis Active 2018-08-25 16:5 9:23 Pain in left knee Active 2018-08-25 16:59:23 Muscle weakness Active 2018-08-22 11:47:19 Joint stiffness Active 2018-08-22 11:47:19 Pain in right knee Active 2018-08-22 11:47:19 History of total knee arthroplasty Active 2018-08-22 11 :47:19 Implantation of joint prosthesis Active 2018-08-22 11:4 7:19 Pain in left knee Active 2018-08-22 11:47:19 Muscle weakness Active 2018-08-22 11:47:19 Joint stiffness Active 2018-08-22 11:47:19 Pain in right knee Active 2018-08-22 11:47:19 History of total knee arthroplasty Active 2018-08-22 11 :47:19 Implantation of joint prosthesis Active 2018-08-22 11:4 7:19 Pain in left knee Active 2018-08-22 11:47:19 Implantation of joint prosthesis Active 2018-08-18 12:0 8:52 History of total knee arthroplasty Active 2018-08-18 12 :08:53 Joint stiffness Active 2018-08-18 12:09:01 Pain in right knee Active 2018-08-18 12:09:14 Muscle weakness Active 2018-08-18 12:09:15 Pain in left knee Active 2018-08-18 12:09:35 Implantation of joint prosthesis Active 2018-08-18 12:0 8:52 History of total knee arthroplasty Active 2018-08-18 12 :08:53 Joint stiffness Active 2018-08-18 12:09:01 Pain in right knee Active 2018-08-18 12:09:14 Muscle weakness Active 2018-08-18 12:09:15 Pain in left knee Active 2018-08-18 12:09:35 Replacement of total knee joint Active 2018-08-14 13:31 :28 Replacement of total knee joint Active 2018-08-14 13:31 :28 Pain in right knee Active 2018-08-05 09:09:36 Replacement of total knee joint Active 2018-08-05 09:31 :33 Pain in right knee Active 2018-08-05 09:09:36 Replacement of total knee joint Active 2018-08-05 09:31 :33 Joint stiffness Active 2018-07-25 09:59:59 History of total knee arthroplasty Active 2018-07-25 09 :59:59 Muscle weakness Active 2018-07-25 09:59:59 Implantation of joint prosthesis Active 2018-07-25 09:5 9:59 Joint stiffness Active 2018-07-25 09:59:59 History of total knee arthroplasty Active 2018-07-25 09 :59:59 Muscle weakness Active 2018-07-25 09:59:59 Implantation of joint prosthesis Active 2018-07-25 09:5 9:59 Implantation of joint prosthesis Active 2018-07-22 09:3 5:54 History of total knee arthroplasty Active 2018-07-22 09 :35:54 Joint stiffness Active 2018-07-22 09:35:54 Muscle weakness Active 2018-07-22 09:35:54 Implantation of joint prosthesis Active 2018-07-22 09:3 5:54 History of total knee arthroplasty Active 2018-07-22 09 :35:54 Joint stiffness Active 2018-07-22 09:35:54 Muscle weakness Active 2018-07-22 09:35:54 Implantation of joint prosthesis Active 2018-07-18 11:1 8:33 History of total knee arthroplasty Active 2018-07-18 11 :18:33 Joint stiffness Active 2018-07-18 11:18:33 Muscle weakness Active 2018-07-18 11:18:33 Implantation of joint prosthesis Active 2018-07-18 11:1 8:33 History of total knee arthroplasty Active 2018-07-18 11 :18:33 Joint stiffness Active 2018-07-18 11:18:33 Muscle weakness Active 2018-07-18 11:18:33 Implantation of joint prosthesis Active 2018-07-15 09:2 3:00 History of total knee arthroplasty Active 2018-07-15 09 :23:00 Joint stiffness Active 2018-07-15 09:23:00 Muscle weakness Active 2018-07-15 09:23:00 Implantation of joint prosthesis Active 2018-07-15 09:2 3:00 History of total knee arthroplasty Active 2018-07-15 09 :23:00 Joint stiffness Active 2018-07-15 09:23:00 Muscle weakness Active 2018-07-15 09:23:00 Implantation of joint prosthesis Active 2018-07-08 10:4 0:15 History of total knee arthroplasty Active 2018-07-08 10 :40:15 Joint stiffness Active 2018-07-08 10:40:15 Muscle weakness Active 2018-07-08 10:40:15 Implantation of joint prosthesis Active 2018-07-08 10:4 0:15 History of total knee arthroplasty Active 2018-07-08 10 :40:15 Joint stiffness Active 2018-07-08 10:40:15 Muscle weakness Active 2018-07-08 10:40:15 Knee pain Active 2018-07-02 14:02:22 Replacement of total knee joint Active 2018-07-02 15:55 :42 Knee pain Active 2018-07-02 14:02:22 Replacement of total knee joint Active 2018-07-02 15:55 :42 Joint stiffness Active 2018-07-01 10:00:53 History of total knee arthroplasty Active 2018-07-01 10 :00:53 Muscle weakness Active 2018-07-01 10:00:53 Implantation of joint prosthesis Active 2018-07-01 10:0 0:53 Joint stiffness Active 2018-07-01 10:00:53 History of total knee arthroplasty Active 2018-07-01 10 :00:53 Muscle weakness Active 2018-07-01 10:00:53 Implantation of joint prosthesis Active 2018-07-01 10:0 0:53 Implantation of joint prosthesis Active 2018-06-27 10:0 8:47 History of total knee arthroplasty Active 2018-06-27 10 :08:47 Joint stiffness Active 2018-06-27 10:08:47 Muscle weakness Active 2018-06-27 10:08:47 Implantation of joint prosthesis Active 2018-06-27 10:0 8:47 History of total knee arthroplasty Active 2018-06-27 10 :08:47 Joint stiffness Active 2018-06-27 10:08:47 Muscle weakness Active 2018-06-27 10:08:47 Implantation of joint prosthesis Active 2018-06-24 10:2 3:40 History of total knee arthroplasty Active 2018-06-24 10 :23:40 Joint stiffness Active 2018-06-24 10:23:40 Muscle weakness Active 2018-06-24 10:23:40 Implantation of joint prosthesis Active 2018-06-24 10:2 3:40 History of total knee arthroplasty Active 2018-06-24 10 :23:40 Joint stiffness Active 2018-06-24 10:23:40 Muscle weakness Active 2018-06-24 10:23:40 Implantation of joint prosthesis Active 2018-06-20 10:0 0:50 History of total knee arthroplasty Active 2018-06-20 10 :00:50 Joint stiffness Active 2018-06-20 10:00:50 Muscle weakness Active 2018-06-20 10:00:50 Implantation of joint prosthesis Active 2018-06-20 10:0 0:50 History of total knee arthroplasty Active 2018-06-20 10 :00:50 Joint stiffness Active 2018-06-20 10:00:50 Muscle weakness Active 2018-06-20 10:00:50 Implantation of joint prosthesis Active 2018-06-17 10:3 6:32 History of total knee arthroplasty Active 2018-06-17 10 :36:32 Joint stiffness Active 2018-06-17 10:36:32 Muscle weakness Active 2018-06-17 10:36:32 Implantation of joint prosthesis Active 2018-06-17 10:3 6:32 History of total knee arthroplasty Active 2018-06-17 10 :36:32 Joint stiffness Active 2018-06-17 10:36:32 Muscle weakness Active 2018-06-17 10:36:32 Implantation of joint prosthesis Active 2018-06-13 10:5 7:17 History of total knee arthroplasty Active 2018-06-13 10 :57:17 Joint stiffness Active 2018-06-13 10:57:17 Muscle weakness Active 2018-06-13 10:57:17 Implantation of joint prosthesis Active 2018-06-13 10:5 7:17 History of total knee arthroplasty Active 2018-06-13 10 :57:17 Joint stiffness Active 2018-06-13 10:57:17 Muscle weakness Active 2018-06-13 10:57:17 Pain in right knee Active 2018-06-11 16:20:55 Osteoarthritis of knee Active 2018-06-12 11:32:18 Replacement of total knee joint Active 2018-06-12 11:32 :23 Pain in right knee Active 2018-06-11 16:20:55 Osteoarthritis of knee Active 2018-06-12 11:32:18 Replacement of total knee joint Active 2018-06-12 11:32 :23 Implantation of joint prosthesis Active 2018-06-12 11:2 2:39 History of total knee arthroplasty Active 2018-06-12 11 :22:39 Joint stiffness Active 2018-06-12 11:22:39 Muscle weakness Active 2018-06-12 11:22:39 Implantation of joint prosthesis Active 2018-06-12 11:2 2:39 History of total knee arthroplasty Active 2018-06-12 11 :22:39 Joint stiffness Active 2018-06-12 11:22:39 Muscle weakness Active 2018-06-12 11:22:39 Implantation of joint prosthesis Active 2018-06-06 09:5 6:28 History of total knee arthroplasty Active 2018-06-06 09 :56:28 Joint stiffness Active 2018-06-06 09:56:28 Muscle weakness Active 2018-06-06 09:56:28 Implantation of joint prosthesis Active 2018-06-06 09:5 6:28 History of total knee arthroplasty Active 2018-06-06 09 :56:28 Joint stiffness Active 2018-06-06 09:56:28 Muscle weakness Active 2018-06-06 09:56:28 Implantation of joint prosthesis Active 2018-06-03 10:3 9:11 History of total knee arthroplasty Active 2018-06-03 10 :39:11 Joint stiffness Active 2018-06-03 10:39:11 Muscle weakness Active 2018-06-03 10:39:11 Implantation of joint prosthesis Active 2018-06-03 10:3 9:11 History of total knee arthroplasty Active 2018-06-03 10 :39:11 Joint stiffness Active 2018-06-03 10:39:11 Muscle weakness Active 2018-06-03 10:39:11 Encounters Start End Encounter Admission Attending Care Care Encounter Date/Time Date/Time Type Type Clinicians Facility Department ID 2020-03-01 2020-03-01 Rubén Choe [id number] 00:00:00 00:00:00 Jake Surgical Surgical [id number] MD [facility] [address] [place] [address], [address] [address], Ph. 2020-01-19 2020-01-19 Rubén Choe [id number] 00:00:00 00:00:00 Jake Surgical Surgical [id number] MD [facility] [address] [place] [address], [address], [place] [address], Ph. 2019-07-07 2019-07-07 [facility] [id number] 00:00:00 00:00:00 Mosher P.A. , P.A. [id number] MD: [address] [facility] [address], [place] [address], Ph. 2019-06-16 2019-06-16 Rambo [facility] 91 [id number] 00:00:00 00:00:00 Mosher P.Philip , P.A. [id number] MD: [address] [facility] [address], [facility] [place] [address], Ph. 2018-12-11 2018-12-11 Rubén Choe [id number] 00:00:00 00:00:00 Jake [facility] [id number] MD [facility] [address] [place] [address], [address], [place] [address], Ph. 2018-11-13 2018-11-13 Rubén Choe [id number] 00:00:00 00:00:00 Jake [facility] [id number] MD [facility] [address] [place] [address], [address], [place] [address], Ph. 2018-10-08 2018-10-08 Britni Choe [id number] 00:00:00 00:00:00 Devin, Surgical Surgical [id number] DPT: [facility] [place][note 2] [facility], [place] [address], Ph. 2018-10-02 2018-10-02 Ladonna Choe [id number] 6_201 00:00:00 00:00:00 Llyod, DUMPMAN: Surgical Surgical [id number], [place] [address], Ph. 2018-09-29 2018-09-29 Ladonna Choe [id number] 6_201 00:00:00 00:00:00 Llyod, DUMPMAN: Surgical Surgical [id number], [place] [address], Ph. 2018-09-24 2018-09-24 Britni Maldonadot [id number] 00:00:00 00:00:00 Devin, Surgical Surgical [id number] DPT: [address] [facility] [address], [place] [address], Ph. 2018-09-22 2018-09-22 Ladonna Choe [id number] 6_201 00:00:00 00:00:00 Llyod, DUMPMAN: Surgical Surgical [id number], [place] [address], Ph. 2018-09-18 2018-09-18 Rubén Maldonadot [id number] 00:00:00 00:00:00 Jake Surgical Surgical [id number] MD [facility] [place][note 2] [facility], [address], [place] [address], Ph. 2018-09-18 2018-09-18 Rubén Cabaneret [id number] 00:00:00 00:00:00 Jake Surgical Surgical [id number] MD [facility] [place][note 2] [facility], [address], [place] [address], Ph. 2018-09-17 2018-09-17 Britni Maldonadot [id number] 00:00:00 00:00:00 Devin, Surgical Surgical [id number] DPT: [address], [place] [address], Ph. 2018-09-17 2018-09-17 Britni Cabaneret [id number] 00:00:00 00:00:00 Devin, Surgical Surgical [id number] DPT: [address] [facility] [address], [place] [address], Ph. 2018-09-15 2018-09-15 Britni Cabaneret [id number] 00:00:00 00:00:00 Devin, Surgical Surgical [id number] DPT: [address] [facility], [place] [address], Ph. 2018-09-15 2018-09-15 Britni Cabaneret [id number] 00:00:00 00:00:00 Devin, Surgical Surgical [id number] DPT: [address] [facility] [place] [address], Ph. 2018-09-12 2018-09-12 Ladonna Cabaneret [id number] 6_201 00:00:00 00:00:00 Llyod, DUMPMAN: Surgical Surgical [id number] [address] [facility] [address], [place] [address], Ph. 2018-09-12 2018-09-12 Ladonna Cabaneret [id number] 2_201 00:00:00 00:00:00 Llyod, DUMPMAN: Surgical Surgical 16087 [address] [facility] [place] [address], Ph. 2018-09-11 2018-09-11 Rubén Cabaneret [id number] 00:00:00 00:00:00 Jake Surgical Surgical [id number] Benavides MD: [facility] [address] [place] [address], [address], [place] [address], Ph. 2018-09-11 2018-09-11 Rubén Cabaneret [id number] 00:00:00 00:00:00 Jake Surgical Surgical [id number] Benavides MD: [facility] [address], [address], [place] [address], Ph. 2018-09-09 2018-09-09 India Choe [id number] 00:00:00 00:00:00 Michelle, Surgical Surgical [id number] DUMPMAN: [address] [facility] [address], [place] [address], Ph. 2018-09-09 2018-09-09 India Maldonadot [id number] 00:00:00 00:00:00 [place]owe, Surgical Surgical [id number] DUMPMAN: [address] [facility] [address], [place] [address], Ph. 2018-09-03 2018-09-03 Ladonna Choe [id number] 6_[id number] 00:00:00 00:00:00 Llyod, DUMPMAN: Surgical Surgical [id number], [place] [address], Ph. 2018-09-03 2018-09-03 Ladonna Maldonadot [id number] 2_201 00:00:00 00:00:00 Llyod, DUMPMAN: Surgical Surgical [id number] [address] [facility] [address], [place] [address], Ph. 2018-09-01 2018-09-01 India Maldonadot [id number] 00:00:00 00:00:00 [place], Surgical Surgical [id number] DUMPMAN: [address], [place] [address], Ph. 2018-09-01 2018-09-01 India Maldonadot [id number] 00:00:00 00:00:00 Michelle, Surgical Surgical [id number] DUMPMAN: [address] [facility] [address], [place] [address], Ph. 2018-08-28 2018-08-28 Britni Maldonadot [id number] 00:00:00 00:00:00 Devin, Surgical Surgical [id number] DPT: [address], [place] [address], Ph. 2018-08-28 2018-08-28 Britni Maldonadot [id number] 00:00:00 00:00:00 Devin, Surgical Surgical [id number] DPT: [address], [place] [address], Ph. 2018-08-25 2018-08-25 Ladonna Cabaneret [id number] 6_201 00:00:00 00:00:00 Llyod, DUMPMAN: Surgical Surgical [id number], [place] [address], Ph. 2018-08-25 2018-08-25 Ladonna Cabaneret [id number] 2_201 00:00:00 00:00:00 Llyod, DUMPMAN: Surgical Surgical [id number], [place] [address], Ph. 2018-08-22 2018-08-22 Ladonna Cabaneret [id number] 6_201 00:00:00 00:00:00 Llyod, DUMPMAN: Surgical Surgical [id number], [place] [address], Ph. 2018-08-22 2018-08-22 Ladonna Cabaneret [id number] 2_201 00:00:00 00:00:00 Llyod, DUMPMAN: Surgical Surgical [id number], [place] [address], Ph. 2018-08-18 2018-08-18 Britni Maldonadot [id number] 00:00:00 00:00:00 Devin, Surgical Surgical [id number] DPT: [address], [place] [address], Ph. 2018-08-18 2018-08-18 Britni Choe [id number] 00:00:00 00:00:00 Devin, Surgical Surgical [id number] DPT: [address], [place] [address], Ph. 2018-08-14 2018-08-14 Rubén Malodnadot [id number] 00:00:00 00:00:00 Jake Surgical Surgical [id number] MD [facility] [place][note 2] [address], [address], [place] [address], Ph. 2018-08-14 2018-08-14 Rubén Maldonadot [id number] 00:00:00 00:00:00 Jake Surgical Surgical [id number] MD [facility] [place][note 2] [facility], [address], [place] [address], Ph. 2018-08-05 2018-08-05 Rubén Maldonadot [id number] 00:00:00 00:00:00 Jake Surgical Surgical [id number] MD [facility] [place][note 2] [employer] [address], [place] [address], Ph. 2018-08-05 2018-08-05 Rubén Daija Maldonadot [id number] 00:00:00 00:00:00 Jake Surgical Surgical [id number] MD [facility] [place][note 2] [facility], [address], [place] [address], Ph. 2018-07-25 2018-07-25 Britni Maldonadot [id number] 00:00:00 00:00:00 Devin, Surgical Surgical [id number] DPT: [address], [place] [address], Ph. 2018-07-25 2018-07-25 Britni Cabaneret [id number] 00:00:00 00:00:00 Devin, Surgical Surgical [id number] DPT: [address], [place] [address], Ph. 2018-07-22 2018-07-22 Britni Cabaneret [id number] 00:00:00 00:00:00 Devin, Surgical Surgical [id number] DPT: [address], [place] [address], Ph. 2018-07-22 2018-07-22 Britni Maldonadot [id number] 00:00:00 00:00:00 Devin, Surgical Surgical [id number] DPT: [address] [facility] [address], [place] [address], Ph. 2018-07-18 2018-07-18 Britni Cabaneret [id number] 00:00:00 00:00:00 Devin: Surgical Surgical [id number], [place] [address], Ph. 2018-07-18 2018-07-18 Britni Cabaneret [id number] 00:00:00 00:00:00 Devin, Surgical Surgical [id number] DPT: [address] [facility] [address], [place] [address], Ph. 2018-07-15 2018-07-15 Britni Cabaneret [id number] 00:00:00 00:00:00 Devin: Surgical Surgical [id number] [address], [place] [address], Ph. 2018-07-15 2018-07-15 Britni Choe Allen [id number] 00:00:00 00:00:00 Devin, Surgical Surgical [id number] DPT: [address] [facility] [address], [place] [address], Ph. 2018-07-08 2018-07-08 Britni Cabaneret [id number] 00:00:00 00:00:00 Devin: Surgical Surgical [id number] [address] [facility] [address], [place] [address], Ph. 2018-07-08 2018-07-08 Britni Cabaneret [id number] 00:00:00 00:00:00 Devin: Surgical Surgical [id number] [address] [facility] [address], [place] [address], Ph. 2018-07-02 2018-07-02 Rubén Cabaneret [id number] 00:00:00 00:00:00 Jake Surgical Surgical [id number] MD [facility] [address] [place] [address], [address], [place] [address], Ph. 2018-07-02 2018-07-02 Rubén Cabaneret [id number] 00:00:00 00:00:00 Jake Surgical Surgical [id number] MD [facility] [address] [place] [address], [address], [place] [address], Ph. 2018-07-01 2018-07-01 Britni Cabaneret [id number] 00:00:00 00:00:00 Devin: Surgical Surgical [id number] [address] [facility] [address], [place] [address], Ph. 2018-07-01 2018-07-01 Britni Cabaneret [id number] 00:00:00 00:00:00 Devin: Surgical Surgical [id number] [address] [facility] [address], [place] [address], Ph. 2018-06-27 2018-06-27 Britni Cabaneret [id number] 00:00:00 00:00:00 Devin: Surgical Surgical [id number] [address] [facility] [address], [place] [address], Ph. 2018-06-27 2018-06-27 Britni Cabaneret [id number] 00:00:00 00:00:00 Devin: Surgical Surgical [id number] [address] [facility] [address], [place] [address], Ph. 2018-06-24 2018-06-24 Britni Daija Cabaneret [id number] 00:00:00 00:00:00 Devin: Surgical Surgical [id number] [address] [facility] [address], [place] [address], Ph. 2018-06-24 2018-06-24 Britni Allen Allen [id number] 00:00:00 00:00:00 Devin: Surgical Surgical [id number] [address] [facility] [address], [place] [address], Ph. 2018-06-20 2018-06-20 Britni Allen Allen [id number] 00:00:00 00:00:00 Devin: Surgical Surgical 55393 [address] [facility] [address], [place] [address], Ph. 2018-06-20 2018-06-20 Britni Allen Allen [id number] 00:00:00 00:00:00 Devin: Surgical Surgical [id number] [address] [facility] [address], [place] [address], Ph. 2018-06-17 2018-06-17 Britni Allen Allen [id number] 00:00:00 00:00:00 Devin: Surgical Surgical [id number] [address] [facility] [address], [place] [address], Ph. 2018-06-17 2018-06-17 Britni Allen Allen [id number] 00:00:00 00:00:00 Devin: Surgical Surgical [id number], [place] [address], Ph. 2018-06-13 2018-06-13 Britni Cabaneret [id number] 00:00:00 00:00:00 Devin: Surgical Surgical [id number], [place] [address], Ph. 2018-06-13 2018-06-13 Britni Cabaneret [id number] 00:00:00 00:00:00 Devin: Surgical Surgical [id number] [address], [place] [address], Ph. 2018-06-11 2018-06-11 Rubén Cabaneret [id number] 00:00:00 00:00:00 Jake Surgical Surgical [id number] MD [facility] [address] [place] [address], [address], [place] [address], Ph. 2018-06-11 2018-06-11 Rubén Cabaneret [id number] 00:00:00 00:00:00 Jake Surgical Surgical [id number] MD [facility] [address] [place] [address], [address], [place] [address], Ph. 2018-06-10 2018-06-10 Tri Cabaneret [id number]_ [id number] 00:00:00 00:00:00 Barley, Surgical Surgical 97004 DUMPMAN: [address], [place] [address], Ph. 2018-06-10 2018-06-10 Tri Cabaneret [id number]_ [id number] 00:00:00 00:00:00 Barley, Surgical Surgical 45055 DUMPMAN: [address], [place] [address], Ph. 2018-06-06 2018-06-06 Britni Cabaneret [id number] 00:00:00 00:00:00 Devin: Surgical Surgical [id number] [address] [facility] [address], [place] [address], Ph. 2018-06-06 2018-06-06 Britni Cabaneret [id number] 00:00:00 00:00:00 Devin: Surgical Surgical [id number], [place] [address], Ph. 2018-06-03 2018-06-03 Britni Cabaneret [id number] 00:00:00 00:00:00 Devin: Surgical Surgical 43501 [address] [facility] [address], [place] [address], Ph. 2018-06-03 2018-06-03 Britni Cabaneret [id number] 00:00:00 00:00:00 Devin: Surgical Surgical [address], [place] [address], Ph. Immunizations Ordered Immunization Filled Immunization Date Status Commen ts Refusal Reason Name Name Influenza, Southern 2019-05-19 Completed Hemisphere 00:00:00 influenza, 2018-05-19 Completed injectable, 00:00:00 quadrivalent Pneumococcal 2017-05-19 Completed Conjugate, 00:00:00 unspecified formulation influenza, 2017-05-19 Completed unspecified 00:00:00 formulation Social History Smoking Status Start Date Stop Date Former Smoker Never Smoker Vital Signs Vital Name Observation Time Observation Value Comments Height 2020-03-01 00:00:00 73 [in_i] BMI (Body Mass Index) 2020-03-01 00:00:00 30.5 kg/m2 Body Weight 2020-03-01 00:00:00 231 [lb_av] Height 2020-01-19 00:00:00 73 [in_i] BMI (Body Mass Index) 2020-01-19 00:00:00 30.5 kg/m2 Body Weight 2020-01-19 00:00:00 231 [lb_av] Height 2019-07-07 00:00:00 73 [in_i] BMI (Body Mass Index) 2019-07-07 00:00:00 30.3 kg/m2 Body Weight 2019-07-07 00:00:00 230 [lb_av] Height 2019-06-16 00:00:00 73 [in_i] BMI (Body Mass Index) 2019-06-16 00:00:00 30.3 kg/m2 Body Weight 2019-06-16 00:00:00 230 [lb_av] BP Diastolic 2018-12-11 00:00:00 70 mm[Hg] Height 2018-12-11 00:00:00 73 [in_i] BMI (Body Mass Index) 2018-12-11 00:00:00 30.5 kg/m2 BP Systolic 2018-12-11 00:00:00 140 mm[Hg] Body Weight 2018-12-11 00:00:00 231 [lb_av] Height 2018-11-13 00:00:00 73 [in_i] BMI (Body Mass Index) 2018-11-13 00:00:00 30.5 kg/m2 Body Weight 2018-11-13 00:00:00 231 [lb_av] Height 2018-09-18 00:00:00 73 [in_i] BMI (Body Mass Index) 2018-09-18 00:00:00 30.5 kg/m2 Body Weight 2018-09-18 00:00:00 231 [lb_av] Height 2018-09-11 00:00:00 73 [in_i] BMI (Body Mass Index) 2018-09-11 00:00:00 30.5 kg/m2 Body Weight 2018-09-11 00:00:00 231 [lb_av] BP Diastolic 2018-08-14 00:00:00 67 mm[Hg] Height 2018-08-14 00:00:00 73 [in_i] BMI (Body Mass Index) 2018-08-14 00:00:00 30.5 kg/m2 BP Systolic 2018-08-14 00:00:00 139 mm[Hg] Body Weight 2018-08-14 00:00:00 231 [lb_av] Height 2018-08-05 00:00:00 73 [in_i] BMI (Body Mass Index) 2018-08-05 00:00:00 30.5 kg/m2 Body Weight 2018-08-05 00:00:00 231 [lb_av] Height 2018-07-02 00:00:00 73 [in_i] BMI (Body Mass Index) 2018-07-02 00:00:00 30.5 kg/m2 Body Weight 2018-07-02 00:00:00 231 [lb_av] Hospital Discharge Instructions 1. History of total knee arthroplasty 2. Pain in right knee 3. Pain in left knee Discussion Note: None recorded. Patient educational handouts: No information available.1. Pain in left knee 2. Pain in right knee 3. History of total knee arthroplasty 4. Knee pain XR, knee, 3 view physical therapy referral - PT Bilateral Knee Focusing on Balance, evaluate and treat Discussion Note: None recorded. Patient educational handouts: No information available.1. Shoulder pain shoulder pain: care instructions XR, shoulder 2. Bursitis of left shoulder 3. Localized, primary osteoarthritis of the shoulder region shoulder arthritis: exercises Discussion Note: None recorded.1. Pain in left knee 2. Pain in right knee 3. History of total knee arthroplasty Discussion Note: None recorded. Patient educational handouts: No information available.
== END ==
LOC: RAD 07:52
PROVIDERS: ATTEND Internal Medicine Pulmonary Disease
DX: K21.9 Gastro-esophageal reflux disease without esophagitis (principal); R13.10 Dysphagia, unspecified
CPT/HCPCS: 74230

== ENCOUNTER → 2020-07-04 | Outpatient (CLI) | payer MEDICARE ==
[2020-07-04 12:02] LABS: ABSOLUTE BASOPHILS # (AUTO) 0.1 10^3/uL (0.0-0.2); ABSOLUTE EOSINOPHILS # (AUTO) 0.6 10^3/uL (0.0-0.6); ABSOLUTE LYMPHOCYTES (AUTO) 1.3 10^3/uL (0.5-4.7); ABSOLUTE MONOCYTES (AUTO) 1.1 10^3/uL (0.1-1.4); ABSOLUTE NEUT (AUTO) 6.3 10^3/uL (1.7-8.2); HEMATOCRIT 39.4 % (37.9-51.0); HEMOGLOBIN 13.5 g/dL (13.5-17.0); LYMPHOCYTES % (AUTO) 13.4 % (13-45); MEAN CORPUSCULAR HEMOGLOBIN 31.5 pg (27.0-33.4); MEAN CORPUSCULAR HGB CONC 34.3 g/dL (32.0-36.0); MEAN CORPUSCULAR VOLUME 92 fl (80-97); MONOCYTES % (AUTO) 11.6 % (3-13); PLATELET COUNT 233 10^3/uL (150-450); RED CELL DISTRIBUTION WIDTH 14.1 % (11.5-14.0); TOTAL CELLS COUNTED % (AUTO) 100 %; WHITE BLOOD COUNT 9.3 10^3/uL (4.0-10.5)
[2020-07-04 12:25] LABS: ANION GAP 10 (5-19); BLOOD UREA NITROGEN 25 mg/dL (7-20); CALCIUM 10.1 mg/dL (8.4-10.2); CARBON DIOXIDE 25 mmol/L (22-30); CHLORIDE 106 mmol/L (98-107); GLUCOSE 135 mg/dL (75-110); POTASSIUM 4.1 mmol/L (3.6-5.0)
--- NOTE | 2020-07-04 12:30 | RADIOLOGY REPORT (SQ) ---
EXAM DESCRIPTION: CHEST PA/LATERAL IMAGES COMPLETED DATE/TIME: 07/04/2020 12:05 pm REASON FOR STUDY: DYSPNEA, UNSPECIFIED COMPARISON: 03/22/2019 EXAM PARAMETERS: NUMBER OF VIEWS: two views TECHNIQUE: Digital Frontal and Lateral radiographic views of the chest acquired. RADIATION DOSE: NA LIMITATIONS: none FINDINGS: LUNGS AND PLEURA: There are chronic interstitial changes. The right hemidiaphragm is elev ated. No acute infiltrate or effusion. MEDIASTINUM AND HILAR STRUCTURES: No masses or contour abnormalities. HEART AND VASCULAR STRUCTURES: Heart normal size. No evidence for failure. BONES: No acute findings. HARDWARE: None in the chest. OTHER: No other significant finding. IMPRESSION: Chronic lung changes with no acute cardiopulmonary findings. TECHNICAL DOCUMENTATION: JOB ID: [id number] 2010 [employer]- All Rights Reserved Reading location - IP/workstation name: [email or web address]
[2020-07-05 12:36] LABS: ANTICHROMATIN AB <0.2 AI (0.0-0.9); CENTROMERE B AB <0.2 AI (0.0-0.9); JO-1 ANTIBODY (ANACOMP) <0.2 AI (0.0-0.9); SJOGREN'S ANTI-SS-B AB <0.2 AI (0.0-0.9); SJOGREN'S SS-A ANTIBODY <0.2 AI (0.0-0.9)
[2020-07-05 12:59] LABS: DNA DOUBLE STRAND ANTIBODY ANA <1 IU/mL (0-9)
== END ==
LOC: OD 10:59
PROVIDERS: ATTEND Internal Medicine Pulmonary Disease
DX: R06.00 Dyspnea, unspecified (principal); R05 Cough
CPT/HCPCS: 36415; 71046; 80048; 83880; 85025; 86225; 86235

== ENCOUNTER 2020-07-26 12:33 | Emergency (ER) | payer MEDICARE ==
--- NOTE | 2020-07-26 13:27 | ER Document Report ---
ED Respiratory Problem - General Chief Complaint: Cold Symptoms Stated Complaint: COUGH,SHORT OF BREATH,BODY ACHES Time Seen by Provider: 07/26/20 13:27 Primary Care Provider: AISHA THORNTON MD [Primary Care Provider] - Follow up as needed TRAVEL OUTSIDE OF THE [place] IN LAST 30 DAYS: No - HPI Notes: 70-year-old male presents to ED for evaluation of cold and cough symptoms. Re ports he has had symptoms for roughly 1 week. Patient lives with his son-in-law who is tested positive for Covid. Patient's is also symptomatic. Patient had seen his primary care physician within the last week and was started on a course of prednisone with some improvement in his symptoms. Patient was also switched off his lisinopril which they believe is contributing to his cough and started on amlodipine with improvement. He denies any chest discomfort. Denies fever or chills. Denies abdominal pain or changes in bowel or bladder habit. They have not done any recent traveling. Patient has not taken any [id number] medicines for improvement in his symptoms. - Related Data Allergies/Adverse Reactions: No Known Allergies Allergy (Verified 07/26/20 13:01) Home Medications: prednisone, amlodipine Past Medical History - General Information source: Patient, Relative - Social History Smoking Status: Former Smoker Family History: None Patient has homicidal ideation: No - Past Medical History Cardiac Medical History: Reports: Hx Hypercholesterolemia, Hx Hypertension Denies: Hx Atrial Fibrillation, Hx Congestive Heart Failure, Hx Coronary Artery Disease, Hx Heart Attack, Hx Peripheral Vascular Disease, Hx Pulmonary Embolism, Hx Heart Murmur Pulmonary Medical History: Reports: Hx Bronchitis - FEW YEARS AGO 2012 Denies: Hx Asthma, Hx COPD, Hx Pneumonia, Hx Respiratory Failure, Hx Sleep Apnea, Hx Tuberculosis Neurological Medical History: Denies: Hx Cerebrovascular Accident, Hx Seizures Endocrine Medical History: Reports: Hx Diabetes Mellitus Type 2 - edge of being diabetic. Denies: Hx Hyperthyroidism, Hx Hypothyroidism Renal/ Medical History: Reports: Hx Benign Prostatic Hyperplasia, Hx Kidney Stones. Denies: Hx End Stage Renal Disease, Hx Peritoneal Dialysis Malignancy Medical History: Denies Hx Lung Cancer GI Medical History: Reports: Hx Gastroesophageal Reflux Disease. Denies: Hx Crohn's Disease, Hx Hiatal Hernia, Hx Irritable Bowel, Hx Liver Failure, Hx Pancreatitis, Hx Ulcer Musculoskeletal Medical History: Reports Hx Arthritis - OA, Denies Hx Fibromyalgia, Denies Hx Muscular Dystrophy Psychiatric Medical History: Denies: Hx Bipolar Disorder, Hx Depression, Hx Post Traumatic Stress Disorder Traumatic Medical History: Reports: Hx Fractures - right hand Past Surgical History: Reports: Hx Orthopedic Surgery - bilateral knee replacement. Denies: Hx Appendectomy, Hx Bowel Surgery, Hx Cholecystectomy, Hx Colostomy, Hx Coronary Artery Bypass Graft, Hx Gastric Bypass Surgery, Hx Herniorrhaphy, Hx Pacemaker, Hx Tonsillectomy - Immunizations Immunizations up to date: Yes Hx Diphtheria, Pertussis, Tetanus Vaccination: Yes Hx Pneumococcal Vaccination: 05/19/17 Review of Systems - Review of Systems Notes: Constitutional: Negative for fever. HENT: Negative for sore throat. Eyes: Negative for visual changes. Cardiovascular: Negative for chest pain. Respiratory: + for shortness of breath. Gastrointestinal: Negative for abdominal pain, vomiting or diarrhea. Genitourinary: Negative for dysuria. Musculoskeletal: Negative for back pain. Skin: Negative for rash. Neurological: Negative for headaches, weakness or numbness. 10 point ROS negative except as marked above and in HPI. Physical Exam - Vital signs Vitals: Temp Pulse Resp BP Pulse Ox 97.7 F 90 20 119/76 95 07/26/20 12:39 07/26/20 12:39 07/26/20 12:39 07/26/20 12:39 07/26/20 12:39 General: No acute distress. Alert and oriented x3. Sitting comfortably in a stretcher. Skin: Intact without any jaundice, pallor, or erythema. Warm and dry. HEENT: Normocephalic, atraumatic. Pupils are equal round reactive to light and accommodation. Extraocular movements are intact. TMs without erythema or bulging. Canals are clear. Nares patent without any discharge. Teeth in good condition. Pharynx without erythema, edema, or exudates. No tonsillar enlargement. Uvula is midline. Airway is patent. Neck: Supple with no lymphadenopathy. Full range of motion. Heart: Regular rate and rhythm. S1,S2. No murmurs, rubs, or gallops. Lungs: Crackles to the right upper lobe. No wheezing or rhonchi. Equal chest expansion. No retractions. Abdomen: Soft, nontender to palpation, nondistended. Positive bowel sounds in all 4 quadrants. No hepatosplenomegaly. No masses. No CVA tenderness bilaterally. Neuro: GCS 15. Moving all extremities without discomfort. Extremities: No calf tenderness or edema. No cyanosis or clubbing. Radial and pedal pulses 2+ bilaterally. Brisk capillary refill. Psych: Mood and affect appropriate. Course - Re-evaluation Re-evalutation: 07/26/20 20:56 70-year-old male presents to ED for evaluation of possible Covid exposure. His son-in-law tested positive for Covid today. He has had some increased shortness of breath. He was started on steroids last week with similar complaints by his primary care physician however not tested at that time. Patient was also switched to a new blood pressure medication as he has had a cough and they were concerned that his lisinopril medication may have been the cause. Does have some improvement. Patient was evaluated with a chest x-ray which does show a right upper lobe infiltrate. Patient will be placed on doxycycline. Patient was also given a new inhaler. Advised to continue his prednisone. Advised that he will be tested for Covid and placed on home precautions for isolation until t he results are returned. He is advised to have close follow-up with his primary care physician return for any new or worsening symptoms. He understands the indications to return to the ED and is in agreement with this plan of management. - Vital Signs Vital signs: Temp Pulse Resp BP Pulse Ox 98.0 F 87 18 121/74 99 07/26/20 16:56 07/26/20 16:56 07/26/20 16:56 07/26/20 16:56 07/26/20 16:56 - Laboratory Results Critical Laboratory Results Reviewed: No Critical Results - Radiology Results Critical Radiology Results Reviewed: No Critical Results - Pneumonia noted and antibiotics started Discharge - Discharge Clinical Impression: Person under investigation for COVID-19 Right upper lobe pneumonia Qualifiers: Pneumonia type: due to unspecified organism Qualified Code(s): J18.9 - Pneumonia, unspecified organism Condition: Stable Disposition: HOME, SELF-CARE Instructions: COVID-19 Guidance for Persons Under Investigation Prescriptions: Albuterol Sulfate [Albuterol Sulfate Hfa] 18 gm IH Q4H PRN #1 [id number] PRN Reason: Doxycycline Hyclate [Vibramycin 100 mg Tablet] 100 mg PO BID #28 tablet Referrals: AISHA THORNTON MD [Primary Care Provider] - Follow up as needed
--- NOTE | 2020-07-26 15:28 | RADIOLOGY REPORT (SQ) ---
EXAM DESCRIPTION: CHEST SINGLE VIEW IMAGES COMPLETED DATE/TIME: 07/26/2020 3:14 pm REASON FOR STUDY: SOB COMPARISON: 07/04/2020. EXAM PARAMETERS: NUMBER OF VIEWS: One view. TECHNIQUE: Single frontal radiographic view of the chest acquired. RADIATION DOSE: NA LIMITATIONS: None. FINDINGS: LUNGS AND PLEURA: Chronic interstitial changes. Slightly hazy appearance of the right upp er lobe. No large pleural effusion. No pneumothorax. MEDIASTINUM AND HILAR STRUCTURES: No masses. Contour normal. HEART AND VASCULAR STRUCTURES: Heart normal in size. Normal vasculature. BONES: No acute findings. HARDWARE: None in the chest. OTHER: No other significant finding. IMPRESSION: CHRONIC INTERSTITIAL CHANGES. POSSIBLE FAINT AIRSPACE DISEASE IN THE RIGHT UPPER LOBE. TECHNICAL DOCUMENTATION: JOB ID: [id number] 2010 [employer]- All Rights Reserved Reading location - IP/workstation name: [email or web address]
[2020-07-26 16:57] VITALS: BP 121/74
--- NOTE | 2020-07-26 17:56 | EKG REPORT ---
SEVERITY:- ABNORMAL ECG - SINUS RHYTHM RIGHT BUNDLE BRANCH BLOCK : Confirmed by: Shivam Barrera 26-Jul-2020 17:55:48
== END 2020-07-26 16:57 | disposition home or self-care (01) ==
LOC: ER 12:33
DX: U07.1 COVID-19 (principal); J12.89 Other viral pneumonia; R05 Cough; R06.02 Shortness of breath; M79.10 Myalgia, unspecified site; Z20.828 Contact with and (suspected) exposure to other viral communicable diseases; Z79.899 Other long term (current) drug therapy; Z87.891 Personal history of nicotine dependence; I10 Essential (primary) hypertension; E11.9 Type 2 diabetes mellitus without complications
CPT/HCPCS: 93005; 99285; 71045; 93010; U0003; C9803; 87635

== ENCOUNTER → 2020-08-18 | Outpatient (CLI) | payer MEDICARE ==
--- NOTE | 2020-08-18 15:15 | RADIOLOGY REPORT (SQ) ---
EXAM DESCRIPTION: CT CHEST WITHOUT IMAGES COMPLETED DATE/TIME: 08/18/2020 9:05 am REASON FOR STUDY: PULMONARY FIBROSIS, UNSPECIFIED J84.10 PULMONARY FIBROSIS, UNSPECIFIED COMPARISON: None. TECHNIQUE: CT scan performed of the chest without intravenous contrast. Images reviewed with lung, soft tissue and bone windows. Reconstructed coronal and sagittal MPR images reviewed. All images st ored on PACS. All CT scanners at this facility use dose modulation, iterative reconstruction, and/or weight based d osing when appropriate to reduce radiation dose to as low as reasonably achievable (ALARA). [facility]: Dose Right [facility]: CareDose [facility]: Dose Right [facility]: Teradose 4D [facility]: Smart Taskmit RADIATION DOSE: CT Rad equipment meets quality standard of care and radiation dose reduction techniq ues were employed. CTDIvol: 14.2 mGy. DLP: 602 mGy-cm. mGy. LIMITATIONS: No technical limitations. FINDINGS: LUNGS AND PLEURA: There are small patchy peripheral areas of ground-glass opacification in the lungs. Mild peripheral pulmonary fibrosis. Mild lower lobe bronchiectasis. HILAR AND MEDIASTINAL STRUCTURES: No identified masses or abnormal nodes. No obvious aneurysm. HEART AND VASCULAR STRUCTURES: No aneurysm. No pericardial effusion. UPPER ABDOMEN: No significant findings. Limited exam. THYROID AND OTHER SOFT TISSUES: No masses. No adenopathy. BONES: No significant finding. HARDWARE: None in the chest. OTHER: No other significant findings. IMPRESSION: 1. 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 Lower lobe bronchiectasis. 2. There are small patchy peripheral areas of ground-glass opacification that may suggest superimpos ed COVID-19 pneumonia. Correlate clinically. TECHNICAL DOCUMENTATION: JOB ID: [id number] Quality ID # [id number]: Final reports with documentation of one or more dose reduction techniques (e.g., Au tomated exposure control, adjustment of the mA and/or kV according to patient size, use of iterative reconstruction technique) 2010 [employer]- All Rights Reserved Reading location - IP/workstation name: [email or web address]
== END ==
LOC: RAD 08:17
PROVIDERS: ATTEND Internal Medicine Pulmonary Disease
DX: J84.10 Pulmonary fibrosis, unspecified (principal)
CPT/HCPCS: 71250